=== PATIENT | female | born 1955 | race Hispanic/Latino ===

== ENCOUNTER → 2022-09-28 | Outpatient (CLI) | payer OTHER | END | disposition home or self-care (01) | LOC: SHCH 08:25 | PROVIDERS: ATTEND Internal Medicine Cardiovascular Disease | DX: I51.7 Cardiomegaly (principal); R06.02 Shortness of breath | CPT/HCPCS: 93306 ==

== ENCOUNTER → 2022-09-30 | Outpatient (CLI) | payer OTHER | END | disposition home or self-care (01) | LOC: EDUNIT# 08:00 → SHCH 08:04 | PROVIDERS: ATTEND Internal Medicine Cardiovascular Disease | DX: I87.2 Venous insufficiency (chronic) (peripheral) (principal) | CPT/HCPCS: 93970 ==

== ENCOUNTER → 2023-11-23 | Outpatient (CLI) | payer OTHER | END | disposition home or self-care (01) | LOC: RAH 09:18 | PROVIDERS: ATTEND Internal Medicine | DX: Z12.31 Encounter for screening mammogram for malignant neoplasm of breast (principal) | CPT/HCPCS: 77067 ==

== ENCOUNTER → 2024-01-10 | Outpatient (CLI) | payer OTHER | END | disposition home or self-care (01) | LOC: RAH 09:30 | PROVIDERS: ATTEND Internal Medicine | DX: Z13.820 Encounter for screening for osteoporosis (principal); M81.0 Age-related osteoporosis without current pathological fracture; Z78.0 Asymptomatic menopausal state | CPT/HCPCS: 77080 ==

== ENCOUNTER → 2024-01-23 | Outpatient (CLI) | payer OTHER ==
[~2024-01-23] MED LIST: GADOTERATE MEGLUMINE 10 MMOL/20 ML VIAL IV ONE
== END | disposition home or self-care (01) ==
LOC: RAH 07:50
PROVIDERS: ATTEND Internal Medicine Gastroenterology
DX: N28.1 Cyst of kidney, acquired (principal); R94.5 Abnormal results of liver function studies
CPT/HCPCS: 74183; A9575

== ENCOUNTER 2024-07-23 11:37 | Inpatient (IN) | payer OTHER ==
[~2024-07-23] VITALS: Ht 152.4 cm; Wt 69.9 kg
--- NOTE | 2024-07-23 11:51 | ERN ---
General Chief Complaint: Dyspnea/Respdistress Stated Complaint: SOB, BLE PAIN Time Seen by MD: 11:41 History of Present Illness Initial Comments 68-year-old female presents to the ED for evaluation of shortness a breath onset 2 months ago. Patient was sent by PCP for further evaluation. Patient has been complaining of neck pain, bilateral lower extremity pain, but denies any other associated symptoms at this time. Patient states these symptoms began after taking the flu shot on June 02. Medical history of CLL, DVT. Allergies: Coded Allergies: No Known Allergies (Unverified Allergy, Unknown, 07/23/24) Home Meds Reported Medications Nilotinib HCl (Tasigna) 150 Mg Capsule, 1 CAP PO BID for 30 Days, #120 CAP 0 Refills 07/23/24 Alendronate Sodium (Alendronate Sodium) 70 Mg Tablet, 1 TAB PO QWEEK for 28 Days, #4 TAB 0 Refills in the morning, at least 30 minutes before the first food, beverage, or medication of the day 07/23/24 Mirabegron (Myrbetriq) 50 Mg Tab.er.24h, 1 TAB PO DAILY for 30 Days, #30 TAB 0 Refills 07/23/24 Valacyclovir HCl (Valacyclovir) 1,000 Mg Tablet, 1 TAB PO BID for 7 Days, #21 TAB 0 Refills 07/23/24 Atorvastatin Calcium (LIPITOR) 20 Mg Tab, 1 TAB PO HS for 30 Days, #30 TAB 0 Refills 07/23/24 Ferrous Sulfate (Ferrous Sulfate) 325 Mg (65 Mg Iron) Ectab, 1 TAB PO DAILY for 30 Days, #30 TAB 0 Refills 07/23/24 Ursodiol (Ursodiol) 500 Mg Tablet, 1 TAB PO BID for 30 Days, #60 TAB 0 Refills 07/23/24 Calcium/D3/Mag Ox/Procurement Professional/Isai/Zn (Caltrate+D3 Plus Mineral Minis) 300 Mg-20 Tablet, 1 TAB PO DAILY for 30 Days, #30 TAB 0 Refills 07/23/24 [Amlodip/Benazepril] No Conflict Check, 1 TAB 07/23/24 ROS Dictation Constitutional: Negative for fever,chills, and weight loss Eyes: Negative for injury, pain,redness, and discharge ENT: Negative for injury,pain or swelling Cardiovascular: Negative for chest pain, palpitations, and edema Respiratory: Positive for shortness a breath, negative for cough, and wheezing, Abdomen/GI: Negative for abdominal pain, nausea, vomiting, diarrhea, and constipation Back: Negative for injury and pain : Negative for injury, bleeding and discharge MS/Extremity: Positive for neck pain, lower extremity pain Negative for injury and deformity Skin: Negative for rash, and discoloration Neuro: Negative for headache, weakness, numbness, tingling, and seizure Psych: Negative for suicide ideation, homicidal ideation, and hallucinations Physical Exam Physical Exam Dictation General: awake, alert, NAD Head/Face: Normocephalic, atraumatic Eyes: PERRL, EOMI, vision at baseline ENT: oral cavity clear, TMs clear, no signs of infection Neck: Trachea midline, supple, no nuchal rigidity Cardiovascular: RRR, normal S1/S2, No MRGs, no JVD Respiratory: Course bilateral breath sounds, mild respiratory distress, No rales or wheezes Abdomen: Soft, non-tender, non-distended, normal bowel sounds, no guarding or rebound. Skin: Warm, dry, normal turgor, no rash MS/Extremity: Pulses equal, no cyanosis, neurovascular intact, FROM Neuro: COAx4, GCS 15, strength 5/5, CN 2-12 intact, normal cerebellar exam, normal gait, Psych: Normal behavior, mood, and affect normal Results Laboratory and Microbiology Lab and Micro Result Laboratory Tests Test 07/23/24 13:00 07/23/24 14:28 White Blood Count 5.2 K/uL (4.8-10.8) Red Blood Count 3.30 MIL/uL (4.00-5.50) L Hemoglobin 10.6 g/dL (12.0-16.0) L Hematocrit 32.5 % (36-48) L Mean Corpuscular Volume 98.5 fL (79-99) Mean Corpuscular Hemoglobin 32.1 pg (27.0-33.0) Mean Corpuscular Hemoglobin Concent 32.6 g/dL (32.0-36.0) Red Cell Distribution Width 15.4 % (11.0-15.5) Platelet Count 154 K/uL (130-400) Mean Platelet Volume 11.2 fL (7.5-10.5) H Immature Granulocyte % (Auto) 0.2 % (0-1) Neutrophils (%) (Auto) 59.4 % (40.0-77.0) Lymphocytes (%) (Auto) 24.3 % (21.0-51.0) Monocytes (%) (Auto) 9.6 % (3.0-13.0) Eosinophils (%) (Auto) 5.5 % (0.0-8.0) Basophils (%) (Auto) 1.0 % (0.0-5.0) Neutrophils # (Auto) 3.1 K/uL (1.8-7.7) Lymphocytes # (Auto) 1.3 K/uL (1.0-4.8) Monocytes # (Auto) 0.5 K/uL (0.1-1.0) Eosinophils # (Auto) 0.29 K/uL (0.00-0.70) Basophils # (Auto) 0.05 K/uL (0.00-0.20) Absolute Immature Granulocyte (auto 0.01 K/uL (0-1) Nucleated Red Blood Cells 0.0 % (0.0-0.19) Prothrombin Time 10.8 SEC (9.6-11.6) Prothromb Time International Ratio 0.96 (0.85-1.15) Activated Partial Thromboplast Time 27.1 SEC (26.3-35.5) Sodium Level 146 mmol/L (136-145) H Potassium Level 3.5 mmol/L (3.5-5.1) Chloride Level 112 mmol/L (101-111) H Carbon Dioxide Level 25 mmol/L (21-32) Blood Urea Nitrogen 17 mg/dL (7-18) Creatinine 1.1 mg/dL (0.5-1.0) H Glomerular Filtration Rate Calc 54 mL/min (>90) Random Glucose 105 mg/dL (70-105) Total Calcium 8.8 mg/dL (8.5-10.1) Magnesium Level 2.10 mg/dL (1.80-2.40) Total Creatine Kinase 96 U/L (21-232) Troponin I High Sensitivity 19 ng/L (4-50) B-Type Natriuretic Peptide 268 pg/mL (0-100) H Influenza Type A Antigen Negative For Type A Influenza Type B Antigen Negative For Type B SARS-CoV-2, RNA, NAAT NEGATIVE SARS CoV-2 Urine Color LIGHT-YELLOW (YELLOW) Urine Appearance CLEAR (CLEAR) Urine pH 7.5 (5.0-8.0) Urine Specific [place] 1.022 (1.001-1.031) Urine Protein 70 mg/dL (NEGATIVE) H Urine Glucose (UA) NEGATIVE mg/dL (NEGATIVE) Urine Ketones NEGATIVE mg/dL (NEGATIVE) Urine Occult Blood NEGATIVE (NEGATIVE) Urine Nitrate NEGATIVE (NEGATIVE) Urine Bilirubin NEGATIVE mg/dL (NEGATIVE) Urine Urobilinogen 0.2 mg/dL (0.2-1.0) Urine Leukocyte Esterase NEGATIVE Marvel/uL Urine RBC 2-5 /HPF (0-1) H Urine WBC 0-1 /HPF (0-1) Urine Squamous Epithelial Cells RARE /HPF (0-2) Urine Bacteria None /HPF (None Seen) Labs Reviewed?: Yes EKG/XRAY/US/CT/MRI EKG Comment EKG 07/23/2024 time 12:03 p.m. ventricular rate 103, atrial fibrillation. QRS D 84, QT 374. No STEMI X-RAY Comment REASON: sob ORDERING PHYSICIAN: HOLGER HUA MD PROCEDURE: CXR1VW - CHEST 1VW CHEST 1VW HISTORY: Shortness of breath COMPARISON: None FINDINGS: A frontal projection of the chest was obtained. There are bilateral pulmonary infiltrates suggestive of pulmonary vascular congestion with possible superimposed pneumonitis. The heart is borderline enlarged. Mild degenerative changes are seen. No evidence of aortic calcification is seen. IMPRESSION: 1. Bilateral pulmonary infiltrates are seen suggestive of pulmonary vascular congestion with possible superimposed pneumonitis. DICTATED BY: BHARGAVI DAY MD DATE: 07/23/[address] Scan Comment REASON: rule out pe ORDERING PHYSICIAN: HOLGER HUA MD PROCEDURE: CTA CHEST - CT ANGIO CHEST CT ANGIO CHEST HISTORY: Pulmonary embolism COMPARISON: None TECHNIQUE: CT angiography of the chest was performed. The study was performed using angiographic technique with maximum intensity projection reconstruction images. Patient was given 100 cc of Omnipaque through intravenous route. FINDINGS: No CT evidence of filling defect is seen to suggest pulmonary embolus. No CT evidence of aortic dissection is seen. No evidence of parenchymal disease is seen. Small bilateral pleural effusions are seen with right more than left. Coronary arterial calcifications are seen. The heart is enlarged. No evidence of adrenal mass is seen. Degenerative changes of the spine are noted. IMPRESSION: 1. No CT evidence of acute pulmonary embolus is seen. Small bilateral pleural effusions. CT was performed with one or more following dose reduction techniques: automated exposure control, adjustment of the mA and kv according to patient's size, or use of a iterative reconstruction technique. DICTATED BY: BHARGAVI DAY MD DATE: 07/23/24 142 MDM MDM: Differential diagnosis: Shortness a breath, pleural effusion, respiratory distress [facility], accepts patient for admission Previous outside records reviewed: Old ER visits. Need for hospitalization: Patient does meet criteria for hospitalization. Need for emergency major/minor surgery: No Patient's prior external medical records from other ER visits were reviewed by me as indicated. Prior testing and results from previous visits were reviewed. Prior tests were taken into account with medical decision making and resource utilization, independent historian/historians were used to obtain complete medical history. I independently interpreted the test that were performed, results were reviewed by me and considered findings on radiology if ordered. Medical management and examination interpretation discussions were had by me with other qualified healthcare professionals as indicated for the patient's care. ED Course Orders Procedure Category Date Status Time Cbc With Differential LAB 07/23/24 Complete 11:45 Prothrombin Time With LAB 07/23/24 Complete INR 11:45 B-Type Natriuretic LAB 07/23/24 Complete Peptide 11:45 Chest 1vw RAD 07/23/24 Resulted 11:45 12 Lead Ekg Tracing- EKG 07/23/24 Logged Technical 11:45 Magnesium LAB 07/23/24 Complete 11:45 Creatine Kinase, Total LAB 07/23/24 Complete 11:45 Troponin I High LAB 07/23/24 Complete Sensitivity 11:45 Urinalysis Profile LAB 07/23/24 Complete 11:45 Partial LAB 07/23/24 Complete Thromboplastin Time 11:45 Basic Metabolic Panel LAB 07/23/24 Complete 11:[address] 07/23/24 Resulted 11:45 Influenza Type A & B, LAB 07/23/24 Complete Rapid 12:18 Covid Rna Naat LAB 07/23/24 Complete 12:18 Iohexol (Omnipaque) PHA 07/23/24 Complete 13:39 Oxygen By Nc/Pulse Ox CPOE 07/23/24 Transmitted 16:05 Daily Fluid Intake CPOE 07/23/24 Transmitted Restriction 16:05 Famotidine 20mg Tab PHA 07/23/24 In Process (Pepcid 20mg Tab) 21:00 Diphenhydramine Hcl PHA 07/23/24 In Process (Benadryl Cap) 16:30 Acetaminophen 325 Tab PHA 07/23/24 In Process (Tylenol 325mg Tab 16:30 Acetaminophen 325 Tab PHA 07/23/24 In Process (Tylenol 325mg Tab 16:30 Ondansetron 4mg Inj PHA 07/23/24 In Process (Zofran 4mg Inj) 16:30 Lactulose 20 Gm/30 Ml PHA 07/23/24 In Process Udcup (Constulose 16:30 Nitroglycerin 0.4mg PHA 07/23/24 In Process Sl Tab (Nitrostat) 16:30 Guaifenesin-Dm PHA 07/23/24 In Process 200/20mg 10ml 16:30 Ipratropium 0.5 PHA 07/23/24 In Process Mg/2.5 Ml Inh 18:00 Pulse Ox(Continuous) RT 07/23/24 Transmitted 16:05 Procalcitonin LAB 07/23/24 Logged 16:05 Hydralazine 25mg Tab PHA 07/23/24 In Process ([id number] Tab 16:30 Guaifenesin Sug-Can PHA 07/23/24 In Process 100 Mg/5ml (Robituss 16:30 Docusate Sodium 100 PHA 07/23/24 In Process Mg Cap (Colace 100mg 16:30 Polyethylene Glycol PHA 07/23/24 In Process 3350 (Miralax 3350 1 16:30 Lidocaine Hcl 2% PHA 07/23/24 Logged Viscous (Lidocaine Hcl 16:30 Natural Tears 15ml PHA 07/23/24 In Process (Artificial Tears) 16:30 Benzocaine/Menth/Cetylpyrd PHA 07/23/24 In Process Cl (Cepacol S 16:30 Admit Orders ADM 07/23/24 Transmitted 16:05 Telemetry Monitoring CPOE 07/23/24 Transmitted 16:05 Activity: Br W/Brp CPOE 07/23/24 Transmitted With Assist 16:05 Heart Healthy Diet DIET 07/23/24 Transmitted Dinner Cardiac Panel LAB 07/23/24 Logged 16:05 Cardiac Panel LAB 07/24/24 Verified 00:05 Cardiac Panel LAB 07/24/24 Verified 08:05 B-Type Natriuretic LAB 07/23/24 Logged Peptide 16:05 Arterial Blood Gas RT 07/23/24 Transmitted 16:05 Initiate SANDEE 07/23/24 In Process Hyperglycemia Protoco 16:05 B-Type Natriuretic LAB 07/24/24 Verified Peptide 04:00 Cbc With Differential LAB 07/24/24 Verified 04:00 Comprehensive LAB 07/24/24 Verified Metabolic Panel 04:00 Magnesium LAB 07/24/24 Verified 04:00 Chest 1vw RAD 07/24/24 Verified 06:00 Echo 2-D Complete ECHO 07/23/24 Logged 16:05 Furosemide 40mg Vial PHA 07/23/24 In Process (Lasix 40mg Vial) 16:30 Current Medications Medications (Trade) Dose Ordered Sig/Stefani Route PRN Reason Start Time Stop Time Status Last Admin Dose Admin Acetaminophen (TYLenol 325MG TAB) 650 mg Q4H PRN PO MILD PAIN (1-3) 07/23/24 16:30 08/22/24 16:29 Acetaminophen (TYLenol 325MG TAB) 650 mg Q6H PRN PO TEMPERATURE GREATER THAN 101.5 07/23/24 16:30 08/22/24 16:29 Artificial Tears (Artificial Tears) 1 drop Q2H PRN OP DRY EYES 07/23/24 16:30 08/22/24 16:29 Benzocaine (Cepacol Sore Throat Lozenge) 1 each Q2H PRN MM SORE THROAT 07/23/24 16:30 08/22/24 16:29 Diphenhydramine HCl (BENAdryl CAP) 25 mg Q4H PRN PO MILD ITCHING/RASH 07/23/24 16:30 08/22/24 16:29 Docusate Sodium (COLace 100MG CAP) 100 mg BID PRN PO CONSTIPATION 07/23/24 16:30 08/22/24 16:29 Famotidine (Pepcid 20mg Tab) 20 mg BID PO 07/23/24 21:00 08/22/24 20:59 Furosemide (LASix 40MG VIAL) 40 mg Q12H IV 07/23/24 16:30 07/25/24 04:31 Guaifenesin (RobiTUSSin SUGAR-FREE 100 MG/ 5 ML UDCUP) 200 mg Q4H PRN PO COUGH 07/23/24 16:30 08/22/24 16:29 Guaifenesin/ Dextromethorphan (RobiTUSSin DM 200/20MG 10ML) 10 ml Q4H PRN PO COUGH 07/23/24 16:30 08/22/24 16:29 Hydralazine HCl ([id number] TAB) 25 mg Q6H PRN PO SBP>160 or DBP>90 07/23/24 16:30 08/22/24 16:29 Iohexol (Omnipaque) 35,000 mg STK-MED ONCE IV 07/23/24 13:39 07/23/24 13:40 DC Ipratropium Arthur (AtrovENT UD) 0.5 mg [id number] IH 07/23/24 18:00 08/22/24 17:59 Lactulose (Constulose 20gm/ 30ml Udcup) 20 gm BID PRN PO CONSTIPATION 07/23/24 16:30 08/22/24 16:29 Lidocaine HCl/Al Hydroxide/Mg Hydroxide/ Dicyclomine HCl 20ML OR AD MAALOX P... Q6H PRN PO HEARTBURN 07/23/24 16:30 08/22/24 16:29 UNV Nitroglycerin (Nitrostat) 0.4 mg PROTOCOL PRN SL CHEST PAIN 07/23/24 16:30 08/22/24 16:29 Ondansetron HCl (zoFRAN 4MG INJ) 4 mg Q6H PRN IV NAUSEA/VOMITING 07/23/24 16:30 08/22/24 16:29 Polyethylene Glycol (MIRalax 3350 17 GM POWD.PACK) 17 gm DAILY PRN PO CONSTIPATION 07/23/24 16:30 08/22/24 16:29 Vital Signs Date Time Temp Pulse Resp B/P (MAP) Pulse Ox O2 Delivery O2 Flow Rate FiO2 07/23/24 15:30 97.9 84 14 134/56 98 Room Air* 0 21 07/23/24 12:45 97.9 102 11 127/69 96 Room Air* 0 21 07/23/24 11:41 98.1 99 16 142/78 97 Room Air 0 DX & DISP Disposition: Inpatient Decision to Admit Date: Jul 23, 2024 Decision to Admit Time: 16:11 Departure Impression: Primary Impression: Bilateral pleural effusion Additional Impression: Respiratory distress Condition: Stable Referrals: LEIGH ESTEVEZ MD (PCP) I have reviewed, & agreed with my scribe's, documentation. (Entered by Koby Weinstein, acting as a scribe for Dr. Hua) I personally scribed for HOLGER HUA MD (SHANE) on 07/23/24 at 11:51. Electronically submitted by Koby Weinstein ([place]). I personally scribed for HOLGER HUA MD (SHANE) on 07/23/24 at 12:15. Electronically submitted by Koby Weinstein ([email or web address]). HOLGER HUA MD Jul 23, 2024 11:51
[2024-07-23 13:08] LABS: BASOPHILS # (AUTO) 0.05 K/uL (0.00-0.20); EOSINOPHILS # (AUTO) 0.29 K/uL (0.00-0.70); EOSINOPHILS % (AUTO) 5.5 % (0.0-8.0); HEMATOCRIT 32.5 % (36-48); IMMATURE GRANULOCYTE ABSOLUTE 0.01 K/uL (0-1); LYMPHOCYTES # (AUTO) 1.3 K/uL (1.0-4.8); LYMPHOCYTES % (AUTO) 24.3 % (21.0-51.0); MEAN CORPUSCULAR HEMOGLOBIN 32.1 pg (27.0-33.0); MEAN CORPUSCULAR HGB CONC 32.6 g/dL (32.0-36.0); MEAN CORPUSCULAR VOLUME 98.5 fL (79-99); MONOCYTES # (AUTO) 0.5 K/uL (0.1-1.0); MONOCYTES % (AUTO) 9.6 % (3.0-13.0); NEUTROPHILS # (AUTO) 3.1 K/uL (1.8-7.7); NEUTROPHILS % (AUTO) 59.4 % (40.0-77.0); PLATELET COUNT (AUTO) 154 K/uL (130-400); RED CELL DISTRIBUTION WIDTH 15.4 % (11.0-15.5); WHITE BLOOD COUNT (AUTO) 5.2 K/uL (4.8-10.8)
--- NOTE | 2024-07-23 13:08 | HMCIMG ---
CHEST 1VW HISTORY: Shortness of breath COMPARISON: None FINDINGS: A frontal projection of the chest was obtained. There are bilateral pulmonary infiltrates suggestive of pulmonary vascular congestion with possible superimposed pneumonitis. The heart is borderline enlarged. Mild degenerative changes are seen. No evidence of aortic calcification is seen. IMPRESSION: 1. Bilateral pulmonary infiltrates are seen suggestive of pulmonary vascular congestion with possible superimposed pneumonitis.
[2024-07-23 13:17] LABS: CREATININE 1.1 mg/dL (0.5-1.0); POTASSIUM 3.5 mmol/L (3.5-5.1)
[2024-07-23 13:18] LABS: INR 0.96 (0.85-1.15); PROTHROMBIN TIME 10.8 SEC (9.6-11.6)
[2024-07-23 13:19] LABS: PARTIAL THROMBOPLASTIN TIME 27.1 SEC (26.3-35.5)
[2024-07-23 13:22] LABS: MAGNESIUM 2.1 mg/dL (1.80-2.40)
[2024-07-23 13:28] LABS: SARS-CoV-2, RNA, NAAT NEGATIVE SARS CoV-2 (NEGATIVE)
[2024-07-23 13:37] LABS: B-TYPE NATRIURETIC PEPTIDE 268 pg/mL (0-100); INFLUENZA TYPE A Negative For Type A (NEGATIVE); INFLUENZA TYPE B Negative For Type B (NEGATIVE)
[2024-07-23] MEDS ORDERED: IOHEXOL 350 MG/ML 100ML INFUS..BTL IV ONE (13:39)
--- NOTE | 2024-07-23 14:34 | HMCIMG ---
CT ANGIO CHEST HISTORY: Pulmonary embolism COMPARISON: None TECHNIQUE: CT angiography of the chest was performed. The study was performed using angiographic technique with maximum intensity projection reconstruction images. Patient was given 100 cc of Omnipaque through intravenous route. FINDINGS: No CT evidence of filling defect is seen to suggest pulmonary embolus. No CT evidence of aortic dissection is seen. No evidence of parenchymal disease is seen. Small bilateral pleural effusions are seen with right more than left. Coronary arterial calcifications are seen. The heart is enlarged. No evidence of adrenal mass is seen. Degenerative changes of the spine are noted. IMPRESSION: 1. No CT evidence of acute pulmonary embolus is seen. Small bilateral pleural effusions. CT was performed with one or more following dose reduction techniques: automated exposure control, adjustment of the mA and kv according to patient's size, or use of a iterative reconstruction technique.
[2024-07-23 14:39] LABS: APPEARANCE,URINE CLEAR (CLEAR); BILIRUBIN,URINE NEGATIVE (NEGATIVE); COLOR,URINE LIGHT-YELLOW (YELLOW); GLUCOSE, URINE (UA) NEGATIVE (NEGATIVE); KETONES,URINE NEGATIVE (NEGATIVE); LEUKOCYTE ESTERASE ,URINE NEGATIVE Leu/uL (NEGATIVE); NITRATE,URINE NEGATIVE (NEGATIVE); OCCULT BLOOD,URINE NEGATIVE (NEGATIVE); PH,URINE 7.5 (5.0-8.0); PROTEIN,URINE 70 mg/dL (NEGATIVE); UROBILINOGEN,URINE 0.2 mg/dL (0.2-1.0)
[2024-07-23 14:40] LABS: ADD UA MICROSCOPIC YES
[2024-07-23 14:41] LABS: MUCUS,URINE RARE LPF (None Seen); SQUAMOUS EPITHELIAL CELL,UR RARE /HPF (0-2); WBC,URINE 0-1 /HPF (0-1)
[2024-07-23] MEDS ORDERED: BENAZEPRIL (15:54)
[2024-07-23] MEDS ORDERED: CA C-5 PO (15:54)
[2024-07-23] MEDS ORDERED: AMLODIPINE (15:54)
[2024-07-23] MEDS ORDERED: URSO500T10 PO (15:54)
[2024-07-23] MEDS ORDERED: ATOR10 PO (15:54)
[2024-07-23] MEDS ORDERED: MIRA50TA PO (15:54)
[2024-07-23] MEDS ORDERED: VALA100031 PO (15:54)
[2024-07-23] MEDS ORDERED: ALEN70TA80 PO (15:54)
[2024-07-23] MEDS ORDERED: FERS325 PO (15:54)
[2024-07-23] MEDS ORDERED: NILO150C PO (15:54)
[2024-07-23] MEDS ORDERED: polyETHYLene GLYCol 3350 17 GM POWD.PACK PO PRN (16:30)
[2024-07-23] MEDS ORDERED: doCUSate SODIUM 100 MG CAP PO PRN (16:30)
[2024-07-23] MEDS ORDERED: NITROGLYCERIN 0.4 MG SL TAB SL PRN (16:30)
[2024-07-23] MEDS ORDERED: ondanSETRON 4MG INJ IV PRN (16:30)
[2024-07-23] MEDS ORDERED: hydrALAZine 25MG TABLET PO PRN (16:30)
[2024-07-23] MEDS ORDERED: ARTIFICAL TEARS SOL 15 ML OP PRN (16:30)
[2024-07-23] MEDS ORDERED: LACTULOSE 20 GM/30 ML UDCUP PO PRN (16:30)
[2024-07-23] MEDS ORDERED: LIDOCAINE HCL 2% VISCOUS 30 ML, MAG/ALUM/SIMETH 30ML 30 ML, DICYCLOMINE HCL 20 MG PO PRN (16:30)
[2024-07-23] MEDS ORDERED: guaiFENesin SUGAR-FREE 100 MG/5 ML UDCUP PO PRN (16:30)
[2024-07-23] MEDS ORDERED: BENZOCAINE/MENTH/CETYLPYRD CL 1 EACH LOZENGE MM PRN (16:30)
[2024-07-23] MEDS ORDERED: acetaMINOPHEN 325 MG TAB PO PRN (16:30)
[2024-07-23] MEDS ORDERED: DiphenhydrAMINE HCL 25 MG CAPSULE PO PRN (16:30)
[2024-07-23 16:50] VITALS: PULSE 84; RESP 20; O2SAT 96
[2024-07-23 16:58] LABS: ABG BASE EXCESS -4.9 mmol/L (-2.0-3.0); ABG HCO3 17.8 mmol/L (21.0-28.0); ABG OXYGEN SATURATION 92.2 % (94.0-98.0); ABG PCO2 27 mmHg (32-45); ABG PH 7.431 (7.350-7.450); VENT MODE, BG RA (ROOM AIR)
[2024-07-23] MEDS: furoSEMIDE 40MG VIAL IV SCH (17:09)
[2024-07-23 19:58] VITALS: PULSE 101; RESP 20
[2024-07-23] MEDS: IpraTROPium 0.5 MG/2.5 ML INH IH SCH (19:58)
[2024-07-23] MEDS: FAMOTIDINE 20MG TAB PO SCH (20:54)
[2024-07-23 23:27] VITALS: PULSE 80; RESP 18; O2SAT 97
--- NOTE | 2024-07-24 01:46 | HMCIMG ---
CHEST 1VW HISTORY: Congestion COMPARISON: None FINDINGS: A frontal projection of the chest was obtained. Mild bilateral pulmonary infiltrates are seen may be related to mild pulmonary vascular congestion with possible superimposed pneumonitis. The heart is borderline enlarged. Degenerative changes are seen. No evidence of aortic calcification is seen. IMPRESSION: 1. Mild bilateral pulmonary infiltrates are seen may be related to mild pulmonary vascular congestion with possible superimposed pneumonitis.
[2024-07-24 04:21] LABS: BASOPHILS # (AUTO) 0.05 K/uL (0.00-0.20); BASOPHILS % (AUTO) 0.9 % (0.0-5.0); EOSINOPHILS # (AUTO) 0.38 K/uL (0.00-0.70); EOSINOPHILS % (AUTO) 6.6 % (0.0-8.0); HEMATOCRIT 31.1 % (36-48); IMMATURE GRANULOCYTE ABSOLUTE 0.01 K/uL (0-1); LYMPHOCYTES # (AUTO) 1.4 K/uL (1.0-4.8); MEAN CORPUSCULAR HGB CONC 31.5 g/dL (32.0-36.0); MEAN CORPUSCULAR VOLUME 98.4 fL (79-99); MONOCYTES # (AUTO) 0.5 K/uL (0.1-1.0); MONOCYTES % (AUTO) 9.3 % (3.0-13.0); NEUTROPHILS # (AUTO) 3.4 K/uL (1.8-7.7); PLATELET COUNT (AUTO) 150 K/uL (130-400); RED BLOOD CELL COUNT(AUTO) 3.16 MIL/uL (4.00-5.50); RED CELL DISTRIBUTION WIDTH 15.4 % (11.0-15.5); WHITE BLOOD COUNT (AUTO) 5.8 K/uL (4.8-10.8)
[2024-07-24 04:34] LABS: ALBUMIN 2.7 g/dL (3.5-5.0); BILIRUBIN,TOTAL 2.7 mg/dL (0.2-1.0); CREATININE 1.1 mg/dL (0.5-1.0); POTASSIUM 3.6 mmol/L (3.5-5.1); TOTAL PROTEIN, SERUM 6.2 g/dL (6.0-8.3)
[2024-07-24 04:39] LABS: B-TYPE NATRIURETIC PEPTIDE 297 pg/mL (0-100)
--- NOTE | 2024-07-24 06:33 | EKG ---
[facility] Test Date: 2024-07-23 Test Time: 12:03:25 Pat Name: CARMEN HOLCOMB Department: EDHIP Room: ED 03 Gender: F Liability Claims Adjuster: [id number] : 1955 Requested By: HOLGER HUA Order Number: [id number] Reading MD: Олег Membreno Measurements Intervals [place] Rate: 103 P: 0 [place]: 0 QRS: 11 QRSD: 84 T: 70 QT: 374 QTc: 490 Interpretive Statements Atrial fibrillation No previous ECG available for comparison Electronically Signed On 07-24-2024 20:50:07 FINANCIAL SERVICES PROFESSIONAL by Олег Membreno Please click the below link to view image of tracing.
[2024-07-24 07:15] VITALS: PULSE 81; RESP 18
[2024-07-24 07:31] VITALS: PULSE 82; RESP 18; O2SAT 97
--- NOTE | 2024-07-24 10:41 | HP ---
[facility] HISTORY & PHYSICAL Date Patient Seen: Jul 24, 2024 Time of Visit: 10:31 Supervising Physician: Dr Tubbs Primary Care Physician: Dr Cyr Outpatient Specialists: [ ] Inpatient Consults: [ ] PROBLEM LIST: Acute hypoxemic respiratory failure Small Bilteral pleural effusions Essential hypertension Hyperlipidemia Osteoporosis History of CLL Plan Summary: Supplemental oxygen as needed Lasix 40 mg IV every 12 hours x4 doses Strict intakes and outputs Daily weights Obtain 2D echo Dispo: Home HPI: Mrs. Didi Holcomb is a 68-year-old female with a past medical history of hypertension, hyperlipidemia, CLL, osteoporosis presents to emergency room chief complaint of shortness of breath with an onset about 2-3 weeks. Patient reports she went to go see her PCP Dr. Cyr and was instructed to come to the ED for further evaluation. Patient has been complaining of neck pain, bilateral lower extremity pain, but denies any other associated symptoms at this time. Patient states these symptoms began after taking the flu shot on June 02. Patient denies fevers, chills, chest pain, nausea, vomiting. Admission vital signs are temperature 98.1 C, heart rate 87 beats per minute, respiratory rate 17 breaths per minute, blood pressure 149/63, O2 sat 92 %. Patient is placed on nasal cannula and O2 sat increase to 90%. Patient was given IV Lasix in the ED in patient reports her respiratory status has improved. Patient is currently on room air with an O2 sat of 95%. Patient had a chest x- ray which showed mild bilateral pulmonary infiltrates which may be related to mild pulmonary vascular congestion with possible superimposed pneumonitis. The patient was found to have an elevated D-dimer therefore a CT angio was performed and results show no CT evidence for PE. Small bilateral pleural effusions. Patient will be admitted for acute hypoxemic respiratory failure secondary to bilateral pulmonary effusions. PAST MEDICAL HX: see above PAST SURGICAL HX: noncontributory SOCIAL HISTORY: No tobacco, ETOH, or illicit drug use Coded Allergies: No Known Allergies (Unverified Allergy, Unknown, 07/23/24) REVIEW OF SYSTEMS: 12 point ROS reviewed with patient. Pertinent positives mentioned above. Otherwise negative. PHYSICAL EXAM: GENERAL: alert, weak, awake oriented x 3 HEENT: EOMI, Sclera non icteric, moist mucosa NECK: Supple, no JVD, trachea midline LUNGS: Clear breath sounds bilaterally. No wheezes HEART: Regular rate and rhythm. Normal S1 and S2, without murmurs ABD: Abdomen soft, nontender. Bowel sounds present EXT: No clubbing cyanosis or edema NEURO: Alert and oriented to person, follows commands Vital Signs (last 8hr) Date Time Temp Pulse Resp B/P (MAP) Pulse Ox O2 Delivery O2 Flow Rate FiO2 07/24/24 07:54 98.1 72 18 136/77 95 Room Air* 0 21 07/24/24 07:31 82 18 N/A Room Air 07/24/24 07:15 81 18 07/24/24 06:25 72 17 136/65 96 Room Air* 0 07/24/24 03:55 74 18 152/73 92 Room Air* 0 21 LABS: Hematology Labs: Test 07/24/24 04:14 Range/Units White Blood Count 5.8 4.8-10.8 K/uL Red Blood Count 3.16 L 4.00-5.50 MIL/uL Hemoglobin 9.8 L 12.0-16.0 g/dL Hematocrit 31.1 L 36-48 % Mean Corpuscular Volume 98.4 79-99 fL Mean Corpuscular Hemoglobin 31.0 27.0-33.0 pg Mean Corpuscular Hemoglobin Concent 31.5 L 32.0-36.0 g/dL Red Cell Distribution Width 15.4 11.0-15.5 % Platelet Count 150 130-400 K/uL Mean Platelet Volume 10.4 7.5-10.5 fL Immature Granulocyte % (Auto) 0.2 0-1 % Neutrophils (%) (Auto) 59.0 40.0-77.0 % Lymphocytes (%) (Auto) 24.0 21.0-51.0 % Monocytes (%) (Auto) 9.3 3.0-13.0 % Eosinophils (%) (Auto) 6.6 0.0-8.0 % Basophils (%) (Auto) 0.9 0.0-5.0 % Neutrophils # (Auto) 3.4 1.8-7.7 K/uL Lymphocytes # (Auto) 1.4 1.0-4.8 K/uL Monocytes # (Auto) 0.5 0.1-1.0 K/uL Eosinophils # (Auto) 0.38 0.00-0.70 K/uL Basophils # (Auto) 0.05 0.00-0.20 K/uL Absolute Immature Granulocyte (auto 0.01 0-1 K/uL Nucleated Red Blood Cells 0.0 0.0-0.19 % Chemistry Labs: Test 07/24/24 08:14 07/24/24 04:14 07/23/24 16:17 Range/Units Total Creatine Kinase 71 # 21-232 U/L Troponin I High Sensitivity 22.2 4-50 ng/L Sodium Level 144 136-145 mmol/L Potassium Level 3.6 3.5-5.1 mmol/L Chloride Level 112 H 101-111 mmol/L Carbon Dioxide Level 25 21-32 mmol/L Blood Urea Nitrogen 17 7-18 mg/dL Creatinine 1.1 H 0.5-1.0 mg/dL Glomerular Filtration Rate Calc 54 >90 mL/min Random Glucose 83 70-105 mg/dL Total Calcium 8.6 8.5-10.1 mg/dL Magnesium Level 2.00 1.80-2.40 mg/dL Total Bilirubin 2.7 H 0.2-1.0 mg/dL Aspartate Amino Transf (AST/SGOT) 22 10-37 U/L Alanine Aminotransferase (ALT/SGPT) 21 12-78 U/L Alkaline Phosphatase 118 50-136 U/L B-Type Natriuretic Peptide 297 H 0-100 pg/mL Total Protein 6.2 6.0-8.3 g/dL Albumin 2.7 L 3.5-5.0 g/dL Procalcitonin < 0.05 L 0.05-0.5 ng/mL Coagulation Labs: Test 07/23/24 13:00 Range/Units Prothrombin Time 10.8 9.6-11.6 SEC Prothromb Time International Ratio 0.96 0.85-1.15 Activated Partial Thromboplast Time 27.1 26.3-35.5 SEC DIAGNOSTICS / RADIOLOGY RESULTS: PATIENT: DIDI HOLCOMB MR#: [id number] : 1955 SEX: F AGE: 68 LOCATION: [facility] ORDER 2300 STATUS: ADM IN REPORT#: [id number] SERVICE 0600 REASON: CONGESTION ORDERING PHYSICIAN: WISE,DANILO M PA PROCEDURE: CXR1VW - CHEST 1VW CHEST 1VW HISTORY: Congestion COMPARISON: None FINDINGS: A frontal projection of the chest was obtained. Mild bilateral pulmonary infiltrates are seen may be related to mild pulmonary vascular congestion with possible superimposed pneumonitis. The heart is borderline enlarged. Degenerative changes are seen. No evidence of aortic calcification is seen. IMPRESSION: 1. Mild bilateral pulmonary infiltrates are seen may be related to mild pulmonary vascular congestion with possible superimposed pneumonitis. DICTATED BY: BHARGAVI DAY MD DATE: 07/24/24 0139 ELECTRONICALLY SIGNED BY: BHARGAVI DAY MD DATE: 07/24/24 0146 REASON: rule out pe ORDERING PHYSICIAN: HOLGER HUA MD PROCEDURE: CTA CHEST - CT ANGIO CHEST CT ANGIO CHEST HISTORY: Pulmonary embolism COMPARISON: None TECHNIQUE: CT angiography of the chest was performed. The study was performed using angiographic technique with maximum intensity projection reconstruction images. Patient was given 100 cc of Omnipaque through intravenous route. FINDINGS: No CT evidence of filling defect is seen to suggest pulmonary embolus. No CT evidence of aortic dissection is seen. No evidence of parenchymal disease is seen. Small bilateral pleural effusions are seen with right more than left. Coronary arterial calcifications are seen. The heart is enlarged. No evidence of adrenal mass is seen. Degenerative changes of the spine are noted. IMPRESSION: 1. No CT evidence of acute pulmonary embolus is seen. Small bilateral pleural effusions. CT was performed with one or more following dose reduction techniques: automated exposure control, adjustment of the mA and kv according to patient's size, or use of a iterative reconstruction technique. DICTATED BY: BHARGAVI DAY MD DATE: 07/23/24 1428 ELECTRONICALLY SIGNED BY: BHARGAVI DAY MD DATE: 07/23/24 1434 PLAN NEURO: Minimize central acting medications as possible. Maintain fall precautions, adequate lighting during the day PULMONARY: Supplemental 02 as needed. Maintain aspiration precautions at all times To nebs as needed Lasix 40 mg IV every 12 hours 6 minute walk test prior to discharge for home O2 eval CARDIOVASCULAR: Follow hemodynamics. Vital signs per facility protocol Obtain 2D echo GI & NUTRITION: Continue with nutritional support. Continue stool softeners and laxatives as needed. KIDNEYS & ELECTROLYTES: Strict monitoring of intake, output and overall fluid balance. Avoid nephrotoxic medications to the extent possible. Medications to be dosed according to renal function. Monitor electrolytes and replace as needed ENDOCRINE: Maintain blood glucose between 100-180 at all times. Hypoglycemia protocol in place INFECTIOUS DISEASE: Trend temperature, WBC and procalcitonin level Follow cultures, deescalate antibiotics as soon as possible. Panculture if new onset fever ONCOLOGY/HEMATOLOGY/COAGULATION: Monitor for s/s of bleeding Monitor hemoglobin, coagulation studies as needed SKIN: Pressure ulcer prevention per facility protocol Specialty mattress ORTHO/REHAB: Continue PT/OT Prophylaxis: Continue GI and DVT prophylaxis Code Status: Full Resuscitation Disposition: Home once medically stable for discharge. Other: Total patient care time exceeds 35 minutes excluding all procedures. ATTESTATION BY PHYSICIAN I reviewed the documentation, medical decision making, and treatment plan as noted by the mid-level provider above. I agree with the findings and plan of care. Tonny Tubbs MD, ECTOR N NP Jul 24, 2024 10:41
[2024-07-24 12:06] VITALS: PULSE 80; RESP 18
[2024-07-24] MEDS: acetaMINOPHEN 325 MG TAB PO PRN (15:51)
[2024-07-24 19:05] VITALS: PULSE 80; RESP 18
[2024-07-24 19:07] VITALS: PULSE 80; RESP 18; O2SAT 98
--- NOTE | 2024-07-24 20:30 | HMCSR ---
APPROVED REPORT EXAM: Two-dimensional and M-mode echocardiogram with Doppler and color Doppler. INDICATION ICD: Congestive heart failure 2D Dimensions RVDd4.2 cmLVEF(%)69.0 (>50%)LVED Vol(simp.)129.0 mL IVSd1.3 (0.7-1.1cm)FS(%)39 %LVES Vol(simp.)46.9 mL LVDd4.9 (3.8-5.6cm)LA (2D)4.2 (1.6-4.0cm)LVEF(%, simp.)64 % PWd1.3 (0.7-1.1cm)Ao Root(2D)2.8 (2.0-3.7cm)LA ESV INDEX (4CH)40.30 mL/m2 IVSs1.3 cmLVOT diam2.2 (1.8-2.4cm)LA ESV INDEX (2CH)41.50 mL/m2 LVDs3.0 (2.5-4.0cm)IVC diam1.8 cm PWs1.9 cm M-Mode Dimensions EPSS1.0 cm LA (MM)3.7 (1.6-4.0cm) Ao Root(MM)3.3 (2.0-3.7cm) Aortic Valve AoV VTI0.4 mAo Mean GR7.0 mmHgLVOT VTI0.23 m CHARLIE (VMAX)2.1 cm2AVA (VTI) 2.1 cm2 Mitral Valve MV E Vmax85.4 cm/sDECEL Pakv230 ms MV A Vmax97.2 cm/sP 1/2 T63 ms E/A ratio0.9MVA (PHT)3.5 cm2 MR Max PG87 mmHg TDI E/E' Ihtrcd03.9E/E' Uuwlpya07.5 Medial E' Peak V4.30 cm/sLateral E' Peak V5.50 cm/s Pulmonary Valve PV VTI0.23 mPV Mean GR3 mmHg Tricuspid Valve TR Vmax3.1 m/s TR Peak GR38.0 mmHg Left Ventricle The left ventricle is normal size. There is normal LV segmental wall motion. There is normal left susanne tricular wall thickness. LVEF is 60-65%. Stage I diastolic dysfunction. Right Ventricle The right ventricle is mildly dilated. The right ventricular systolic function is normal. Atria The left atrium is mildly dilated. The right atrium is moderately dilated. Aortic Valve The aortic valve is normal in structure. No aortic regurgitation is present. There is no aortic valvu lar stenosis. Mitral Valve The mitral valve is mildly thickened. Mitral valve leaflets open well.Chordae tendineae appears mildy thickened. There is trace of mitral valve regurgitation noted. There is no mitral valve stenosis. Tricuspid Valve The tricuspid valve is normal in structure. There is mild tricuspid valve regurgitation noted. Pulmonic Valve The pulmonary valve is normal in structure. There is no pulmonic valvular regurgitation. Great Vessels The aortic root is normal in size. The IVC is normal in size and collapses <50% with inspiration. Pericardium There is trivial pericardial effusion. Other Information Quality : Adequate Conclusion LVEF is 60-65%. Stage I diastolic dysfunction. The left atrium is mildly dilated. The mitral valve is mildly thickened. Mitral valve leaflets open well.Chordae tendineae appears mildy thickened. There is trace of mitral valve regurgitation noted. There is trivial pericardial effusion.
[2024-07-24] MEDS: URSODIOL PO SCH (20:59)
[2024-07-24] MEDS: NILOTINIB HCL PO SCH (20:59)
[2024-07-24] MEDS: atorVAStatin 10 MG TABLET PO SCH (21:00)
[2024-07-24 23:33] VITALS: PULSE 79; RESP 18
[2024-07-25] VITALS (15 sets, daily range): BP systolic 122–145; BP diastolic 63–87; PULSE 55–117; RESP 16–19; TEMP 97.6–98.4; O2SAT 95–98
[2024-07-25] MEDS: guaiFENesin-DM 200/20MG 10ML PO PRN (04:16)
[2024-07-25] MEDS: metoPROLOL tartRATE 25 MG TAB PO SCH (04:17)
[2024-07-25 05:25] LABS: HEMATOCRIT 33.9 % (36-48); MEAN CORPUSCULAR HEMOGLOBIN 30.8 pg (27.0-33.0); MEAN CORPUSCULAR HGB CONC 31.6 g/dL (32.0-36.0); MEAN CORPUSCULAR VOLUME 97.7 fL (79-99); RED BLOOD CELL COUNT(AUTO) 3.47 MIL/uL (4.00-5.50); RED CELL DISTRIBUTION WIDTH 15.3 % (11.0-15.5); WHITE BLOOD COUNT (AUTO) 6.3 K/uL (4.8-10.8)
[2024-07-25 05:40] LABS: CREATININE 1.2 mg/dL (0.5-1.0); POTASSIUM 3.6 mmol/L (3.5-5.1)
--- NOTE | 2024-07-25 08:23 | EKG ---
[facility] Test Date: 2024-07-25 Test Time: 03:49:13 Pat Name: CARMEN HOLCOMB Department: [facility] Room: 329 1 Gender: F Intermediate Card Tender: [id number] : 1955 Requested By: FLYNN GUERRIER Order Number: [id number] Reading MD: King Marrero Measurements Intervals [place] Rate: 124 P: 0 VA: 0 QRS: 11 QRSD: 84 T: 87 QT: 346 QTc: 497 Interpretive Statements Atrial fibrillation with rapid ventricular response with premature ventricular or aberrantly conducted complexes Compared to ECG 07/23/2024 12:03:25 Ventricular premature complex(es) now present Electronically Signed On 07-25-2024 17:04:30 [employer]ORTS PSYCHOLOGIST by King Marrero Please click the below link to view image of tracing.
[2024-07-25] MEDS: COP PO SCH (09:00)
[2024-07-25] MEDS: MANG PO SCH (09:00)
[2024-07-25] MEDS: D3 PO SCH (09:00)
[2024-07-25] MEDS: CALCIUM PO SCH (09:00)
[2024-07-25] MEDS: MAG OX PO SCH (09:00)
[2024-07-25] MEDS: [UNRECOGNIZED DRUG - OTHER] PO SCH (09:00)
[2024-07-25] MEDS: (Mirabegron (Myrbetriq) 1 TAB) PO SCH (09:00)
--- NOTE | 2024-07-25 09:22 | HMCIMG ---
CHEST 1VW HISTORY: Pleural effusion COMPARISON: 07/24/2024 FINDINGS: A frontal projection of the chest was obtained. Prominent interstitial markings are seen with possible superimposed infiltrates. The heart is enlarged. Degenerative changes are seen. No evidence of aortic calcification is seen. IMPRESSION: 1. Prominent interstitial markings are seen with possible superimposed infiltrates.
[2024-07-25] MEDS: FAMOTIDINE 20MG TAB PO SCH (09:33)
[2024-07-25] MEDS: FERROUS SULFATE 325 MG TABLET.DR PO SCH (09:33)
[2024-07-25 10:35] LABS: BASOPHILS # (AUTO) 0.07 K/uL (0.00-0.20); BASOPHILS % (AUTO) 1.2 % (0.0-5.0); EOSINOPHILS % (AUTO) 6.6 % (0.0-8.0); HEMATOCRIT 32.7 % (36-48); IMMATURE GRANULOCYTE ABSOLUTE 0.01 K/uL (0-1); LYMPHOCYTES # (AUTO) 1.2 K/uL (1.0-4.8); LYMPHOCYTES % (AUTO) 20.5 % (21.0-51.0); MEAN CORPUSCULAR HEMOGLOBIN 31.3 pg (27.0-33.0); MEAN CORPUSCULAR HGB CONC 32.4 g/dL (32.0-36.0); MEAN CORPUSCULAR VOLUME 96.5 fL (79-99); MONOCYTES # (AUTO) 0.5 K/uL (0.1-1.0); MONOCYTES % (AUTO) 8.6 % (3.0-13.0); NEUTROPHILS # (AUTO) 3.8 K/uL (1.8-7.7); NEUTROPHILS % (AUTO) 62.9 % (40.0-77.0); PLATELET COUNT (AUTO) 159 K/uL (130-400); RED BLOOD CELL COUNT(AUTO) 3.39 MIL/uL (4.00-5.50); RED CELL DISTRIBUTION WIDTH 15.1 % (11.0-15.5)
[2024-07-25] MEDS: HEParin 5,000 UNIT VIAL IV PRN (11:40)
[2024-07-25] MEDS: HEParin 25,000 UNITS/250ML D5W 250 ML IV SCH (11:48)
--- NOTE | 2024-07-25 11:59 | CONS ---
[facility] CARDIOLOGY CONSULTATION REPORT Cardiology consultation note dictated for King Marrero MD Primary nursing home admissions director Alfredo Pacheco MD Date Patient Seen: Jul 25, 2024 Requesting Physician: ARMANI Mills Reason for Consultation: New onset atrial fibrillation History of Present Illness: This is a 68-year-old female with a past medical history of hypertension, dyslipidemia, 2D echo 09/2022 with an EF of 55-60% and stage I diastolic dysfunction, venous insufficiency, probable iliac vein compression, bilateral common femoral venograms with IVUS was scheduled on 01/12/2023 but patient canceled procedure, right leg DVT in 08/2021 and CLL who presented to the ED with complaints of dyspnea on exertion, a dry cough, and PND for 3 weeks. CTA of the chest was negative for pulmonary embolism but found small bilateral pleural effusions. EKG on admission demonstrated atrial fibrillation with a heart rate of 103 bpm. Repeat EKG this morning demonstrated atrial fibrillation with rapid ventricular response with a heart rate of 124 bpm. Cardiology has been consulted for recommendations. The patient has been started on Metoprolol tartrate 25mg b.i.d. and is currently rate controlled with heart rate in the 90s. She currently denies chest pain, chest pressure, palpitations, dizziness, shortness of breath, fever, cough, nausea, or vomiting. Past Medical History: As per HPI and summarized below Past Surgical History: Hysterectomy Cholecystectomy Tonsillectomy Heel spurs Family History: The patient's mother, sister, and brother had diabetes mellitus type 2 and hypertension. Social History: The patient lives with family. Habits: The patient denies alcohol, tobacco, or illicit drug use. Home Meds: Alendronate 70 mg weekly Atorvastatin 20 mg nightly Amlodipine-benazepril 5-10 mg daily Caltrate plus D3 plus minerals 1 tab daily Ferrous sulfate 325 mg daily Mirabegron 50 mg daily Nilotinib 150 mg b.i.d. Ursodiol 500 mg b.i.d. Current Meds: Current Medications Medications Dose Ordered Sig/Stefani Start Time Stop Time Status Last Admin Diphenhydramine HCl 25 mg Q4H PRN 07/23/24 16:30 08/22/24 16:29 Acetaminophen 650 mg Q6H PRN 07/23/24 16:30 08/22/24 16:29 Acetaminophen 650 mg Q4H PRN 07/23/24 16:30 08/22/24 16:29 07/24/24 15:51 Ondansetron HCl 4 mg Q6H PRN 07/23/24 16:30 08/22/24 16:29 Lactulose 20 gm BID PRN 07/23/24 16:30 08/22/24 16:29 Nitroglycerin 0.4 mg PROTOCOL PRN 07/23/24 16:30 08/22/24 16:29 Guaifenesin/ Dextromethorphan 10 ml Q4H PRN 07/23/24 16:30 08/22/24 16:29 07/25/24 04:16 Ipratropium [place] 0.5 mg [id number] 07/23/24 18:00 08/22/24 17:59 07/25/24 11:33 Hydralazine HCl 25 mg Q6H PRN 07/23/24 16:30 08/22/24 16:29 Guaifenesin 200 mg Q4H PRN 07/23/24 16:30 08/22/24 16:29 Docusate Sodium 100 mg BID PRN 07/23/24 16:30 08/22/24 16:29 Polyethylene Glycol 17 gm DAILY PRN 07/23/24 16:30 08/22/24 16:29 Lidocaine HCl/Al Hydroxide/Mg Hydroxide/ Dicyclomine HCl 20ML OR AD MAALOX P... Q6H PRN 07/23/24 16:30 08/22/24 16:29 Artificial Tears 1 drop Q2H PRN 07/23/24 16:30 08/22/24 16:29 Benzocaine 1 each Q2H PRN 07/23/24 16:30 08/22/24 16:29 Atorvastatin Calcium 10 mg HS 07/24/24 21:00 08/23/24 20:59 07/24/24 21:00 Alendronate Sodium 70 mg QWEEK@0630 07/31/24 06:30 08/30/24 06:29 Home Med (Calcium/D3/ Mag Ox/Paper Cleaner/ Isai... DAILY 07/25/24 09:00 08/24/24 08:59 Ferrous Sulfate 325 mg DAILY 07/25/24 09:00 08/24/24 08:59 07/25/24 09:33 Home Med (Mirabegron (Myrbetriq) 1 TAB) DAILY 07/25/24 09:00 08/24/24 08:59 Home Med (Nilotinib HCl (Tasig... BID 07/24/24 21:00 08/23/24 20:59 07/24/24 20:59 Home Med (Ursodiol 1 TAB) BID 07/24/24 21:00 08/23/24 20:59 07/24/24 20:59 Amlodipine/ Benazepril HCl 1 each DAILY 07/25/24 09:00 08/24/24 08:59 07/25/24 09:33 Famotidine 20 mg Q24H 07/25/24 09:00 08/22/24 20:59 07/25/24 09:33 Metoprolol Tartrate 25 mg BID 07/25/24 03:30 08/24/24 03:29 07/25/24 09:33 Heparin Sodium (Porcine) *calculation based on ACTUAL B... AD PRN 07/25/24 11:00 08/24/24 10:59 Heparin Sodium/ Dextrose 250 ml @ 0 mls/hr Q6H 07/25/24 11:00 08/24/24 10:59 Review of Systems: CONST: No fever, fatigue, or weight changes. EYES: No recent vision problems. ENT: No congestion, ear pain, or sore throat. C/V: No chest pain, palpitations, or edema. RESP: No cough, congestion, wheezing or shortness of breath. GI: No abdominal pain, nausea, vomiting, constipation, or diarrhea. : No incontinence or dysuria. SKIN: No rash. NEURO: No headache, focal numbness or weakness, dizziness, or seizures. PSYCH: No depression or anxiety. HEME: No abnormal bruising or bleeding. LYMPH: No swollen glands. Physical Examination: GENERAL: No acute distress. HEAD: Normal with no signs of head trauma. EYES: PERRLA, EOMI, conjunctiva and sclera normal. ENT: Hearing grossly intact, normal oropharynx. NECK: Supple without JVD. There is no tenderness, lymphadenopathy, or masses. No thyromegaly. Normal carotid upstrokes without bruits. LUNGS: Clear breath sounds bilaterally. No wheezes, or rhonchi. HEART: Irregularly irregular rate and rhythm. VASC: Peripheral pulses +2 bilaterally. ABD: Bowel sounds normal, soft, nontender, no masses, no organomegaly. No audible bruits. : Not examined LYMPH: No lymphadenopathy noted. EXT: No clubbing, cyanosis or edema. SKIN: No rashes or lesions noted. NEURO: Awake, alert, and oriented x3. No focal sensory or strength deficits noted. Vital Signs (last 8hr) Date Time Temp Pulse Resp B/P (MAP) Pulse Ox O2 Delivery O2 Flow Rate FiO2 07/25/24 11:35 86 18 N/A Room Air 21 07/25/24 11:24 97.5 78 16 129/73 95 Room Air 21 07/25/24 08:32 97.9 66 16 132/63 94 Room Air 07/25/24 06:54 82 18 N/A Room Air 07/25/24 06:53 82 18 07/25/24 04:00 97.9 117 18 135/87 92 Room Air Laboratory: Hematology Labs: Test 07/25/24 10:20 Range/Units White Blood Count 6.0 4.8-10.8 K/uL Red Blood Count 3.39 L 4.00-5.50 MIL/uL Hemoglobin 10.6 L 12.0-16.0 g/dL Hematocrit 32.7 L 36-48 % Mean Corpuscular Volume 96.5 79-99 fL Mean Corpuscular Hemoglobin 31.3 27.0-33.0 pg Mean Corpuscular Hemoglobin Concent 32.4 32.0-36.0 g/dL Red Cell Distribution Width 15.1 11.0-15.5 % Platelet Count 159 130-400 K/uL Mean Platelet Volume 10.5 7.5-10.5 fL Immature Granulocyte % (Auto) 0.2 0-1 % Neutrophils (%) (Auto) 62.9 40.0-77.0 % Lymphocytes (%) (Auto) 20.5 L 21.0-51.0 % Monocytes (%) (Auto) 8.6 3.0-13.0 % Eosinophils (%) (Auto) 6.6 0.0-8.0 % Basophils (%) (Auto) 1.2 0.0-5.0 % Neutrophils # (Auto) 3.8 1.8-7.7 K/uL Lymphocytes # (Auto) 1.2 1.0-4.8 K/uL Monocytes # (Auto) 0.5 0.1-1.0 K/uL Eosinophils # (Auto) 0.40 0.00-0.70 K/uL Basophils # (Auto) 0.07 0.00-0.20 K/uL Absolute Immature Granulocyte (auto 0.01 0-1 K/uL Nucleated Red Blood Cells 0.0 0.0-0.19 % Chemistry Labs: Test 07/25/24 05:18 07/24/24 08:14 07/24/24 04:14 07/23/24 16:17 Range/Units Sodium Level 146 H 136-145 mmol/L Potassium Level 3.6 3.5-5.1 mmol/L Chloride Level 111 101-111 mmol/L Carbon Dioxide Level 27 21-32 mmol/L Blood Urea Nitrogen 21 H 7-18 mg/dL Creatinine 1.2 H 0.5-1.0 mg/dL Glomerular Filtration Rate Calc 49 >90 mL/min Random Glucose 97 70-105 mg/dL Total Calcium 8.8 8.5-10.1 mg/dL Phosphorus Level 4.0 2.5-4.9 mg/dL Magnesium Level 2.00 1.80-2.40 mg/dL Troponin I High Sensitivity 21 4-50 ng/L Total Creatine Kinase 71 # 21-232 U/L Total Bilirubin 2.7 H 0.2-1.0 mg/dL Aspartate Amino Transf (AST/SGOT) 22 10-37 U/L Alanine Aminotransferase (ALT/SGPT) 21 12-78 U/L Alkaline Phosphatase 118 50-136 U/L B-Type Natriuretic Peptide 297 H 0-100 pg/mL Total Protein 6.2 6.0-8.3 g/dL Albumin 2.7 L 3.5-5.0 g/dL Procalcitonin < 0.05 L 0.05-0.5 ng/mL Coagulation Labs: Test 07/25/24 10:20 07/23/24 13:00 Range/Units Activated Partial Thromboplast Time 27.8 26.3-35.5 SEC Prothrombin Time 10.8 9.6-11.6 SEC Prothromb Time International Ratio 0.96 0.85-1.15 Diagnostics / Radiology: Echocardiogram on 07/24/2024 Conclusion LVEF is 60-65%. Stage I diastolic dysfunction. The left atrium is mildly dilated. The mitral valve is mildly thickened. Mitral valve leaflets open well.Chordae tendineae appears mildy thickened. There is trace of mitral valve regurgitation noted. There is trivial pericardial effusion. Impression and Plan: New onset atrial fibrillation Hypertension Dyslipidemia 2D echo 09/2022 with an EF of 55-60% and stage I diastolic dysfunction Venous insufficiency, probable iliac vein compression, Hx of right leg DVT in 08/2021 CLL New onset atrial fibrillation [id number] Score of at least 3 points 2D Echo on 07/24/2024 with an EF of 60-65%, stage I diastolic dysfunction, mildly dilated left atrium, and a trivial pericardial effusion -Started on a Heparin drip and plan to transition to Eliquis 5 mg b.i.d. prior to discharge -Continue metoprolol tartrate 25 mg b.i.d. ATTESTATION BY PHYSICIAN I have seen and examined the patient. I reviewed the documentation, medical decision making, and treatment plan as noted by the mid-level provider above. I agree with the findings and plan of care. KING MARRERO MD, [facility] Jul 25, 2024 11:59 KING MARRERO MD Jul 25, 2024 13:17
[2024-07-26] VITALS (13 sets, daily range): BP systolic 113–152; BP diastolic 52–82; PULSE 55–89; RESP 18–20; TEMP 97.8–98.6; O2SAT 94–97
--- NOTE | 2024-07-26 04:30 | NUR ---
CONVERTED TO SINUS RHYTHM PER TELEMETRY PT CONVERTED TO SINUS RHYTHM AT THIS TIME, VITAL SIGNS STABLE WILL CONT TO MONITOR
--- NOTE | 2024-07-26 07:23 | PN ---
[facility] Cardiology Progress Note CARDIOLOGY PROGRESS NOTE JULY 26, 2024 PROBLEMS: 1. New onset atrial fibrillation 2. Hypertension 3. Dyslipidemia 4. Chronic venous insufficiency 5. History of right leg DVT August 2021 6. Chronic lymphocytic leukemia The patient 2D echo showed an ejection fraction of 60-65% grade 1 diastolic left ventricular dysfunction and trivial pericardial effusion. Blood pressure is 130-150 systolic. Heart rate has been in the 70s and the patient is afebrile. Hemoglobin 10.6 platelet count [id number]. Potassium 3.6 BUN 21 creatinine 1.2. The patient continues on amlodipine benazepril atorvastatin famotidine heparin protocol metoprolol tartrate 25 mg b.i.d.. Plans today will be to discontinue heparin and switch over to Eliquis 5 mg p.o. b.i.d. which will be the appropriate dose for her age weight and renal function. Currently the patient denies any chest pain or shortness of breath. She is able to lie flat comfortably. We will discontinue heparin start her on apixaban 5 mg p.o. b.i.d.. My standpoint she can be discharged home and follow up me as an out patient. Discharge instructions have been given. ISSA LOUIE MD Jul 26, 2024 07:23
[2024-07-26] MEDS ORDERED: METO25 PO (08:00)
[2024-07-26] MEDS ORDERED: APIX5TAB PO (08:00)
[2024-07-26] MEDS: APIXaban 5 MG TABLET PO SCH (08:16)
--- NOTE | 2024-07-26 20:45 | NUR ---
MEDS SHIFT ASSESSMENT DONE, PLEASE REFER TO CHART. DUE MEDS ADMINISTERED, TOLERATED WELL. KEPT RESTED AND COMFORTABLE IN BED. CALL LIGHT WITHIN REACH.
--- NOTE | 2024-07-26 21:32 | PN ---
[facility] PROGRESS NOTE Date Patient Seen: Jul 26, 2024 Time of Visit: 16:28 Supervising Physician: BRIGHT KOO MD Primary Care Physician: Dr Cyr Outpatient Specialists: [ ] Inpatient Consults: [ ] PROBLEM LIST: New onset of Atrial Fibrillation Acute hypoxemic respiratory failure Small Bilteral pleural effusions Essential hypertension Hyperlipidemia Osteoporosis History of CLL INTERVAL HISTORY: Patient seen and examined at the bedside, she is awake, alert, admitted due to respiratory failure noted with pulmonary edema place on oxygen , initially started on heparin and now has been switch to eliquis due to new onset of Afib no chest pain or SOB at this time, possible discharge in the morning. REVIEW OF SYSTEMS: 12 point ROS reviewed with patient. Pertinent positives mentioned above. Otherwise negative. PHYSICAL EXAM: GENERAL: alert, weak, awake oriented x 3 HEENT: EOMI, Sclera non icteric, moist mucosa NECK: Supple, no JVD, trachea midline LUNGS: Clear breath sounds bilaterally. No wheezes HEART: Regular rate and rhythm. Normal S1 and S2, without murmurs ABD: Abdomen soft, nontender. Bowel sounds present EXT: No clubbing cyanosis or edema NEURO: Alert and oriented to person, follows commands Vital Signs (last 8hr) Date Time Temp Pulse Resp B/P (MAP) Pulse Ox O2 Delivery O2 Flow Rate FiO2 07/26/24 18:54 65 18 07/26/24 18:54 65 18 N/A Room Air 21 07/26/24 17:00 98.2 66 18 128/54 99 Room Air LABS: Hematology Labs: Test 07/25/24 10:20 Range/Units White Blood Count 6.0 4.8-10.8 K/uL Red Blood Count 3.39 L 4.00-5.50 MIL/uL Hemoglobin 10.6 L 12.0-16.0 g/dL Hematocrit 32.7 L 36-48 % Mean Corpuscular Volume 96.5 79-99 fL Mean Corpuscular Hemoglobin 31.3 27.0-33.0 pg Mean Corpuscular Hemoglobin Concent 32.4 32.0-36.0 g/dL Red Cell Distribution Width 15.1 11.0-15.5 % Platelet Count 159 130-400 K/uL Mean Platelet Volume 10.5 7.5-10.5 fL Immature Granulocyte % (Auto) 0.2 0-1 % Neutrophils (%) (Auto) 62.9 40.0-77.0 % Lymphocytes (%) (Auto) 20.5 L 21.0-51.0 % Monocytes (%) (Auto) 8.6 3.0-13.0 % Eosinophils (%) (Auto) 6.6 0.0-8.0 % Basophils (%) (Auto) 1.2 0.0-5.0 % Neutrophils # (Auto) 3.8 1.8-7.7 K/uL Lymphocytes # (Auto) 1.2 1.0-4.8 K/uL Monocytes # (Auto) 0.5 0.1-1.0 K/uL Eosinophils # (Auto) 0.40 0.00-0.70 K/uL Basophils # (Auto) 0.07 0.00-0.20 K/uL Absolute Immature Granulocyte (auto 0.01 0-1 K/uL Nucleated Red Blood Cells 0.0 0.0-0.19 % Chemistry Labs: Test 07/26/24 11:35 07/25/24 05:18 Range/Units Whole Blood Glucose 161 H 70-110 MG/DL Sodium Level 146 H 136-145 mmol/L Potassium Level 3.6 3.5-5.1 mmol/L Chloride Level 111 101-111 mmol/L Carbon Dioxide Level 27 21-32 mmol/L Blood Urea Nitrogen 21 H 7-18 mg/dL Creatinine 1.2 H 0.5-1.0 mg/dL Glomerular Filtration Rate Calc 49 >90 mL/min Random Glucose 97 70-105 mg/dL Total Calcium 8.8 8.5-10.1 mg/dL Phosphorus Level 4.0 2.5-4.9 mg/dL Magnesium Level 2.00 1.80-2.40 mg/dL Troponin I High Sensitivity 21 4-50 ng/L Coagulation Labs: Test 07/26/24 05:28 Range/Units Activated Partial Thromboplast Time 90.2 #*H 26.3-35.5 [facility] / RADIOLOGY RESULTS: [ ] PLAN Continue with anticoagulation therapy oxygen support as needed continue with current medical management NEURO: Minimize central acting medications as possible. Maintain fall precautions, adequate lighting during the day PULMONARY: Supplemental 02 as needed. Maintain aspiration precautions at all times To nebs as needed Lasix 40 mg IV every 12 hours 6 minute walk test prior to discharge for home O2 eval CARDIOVASCULAR: Follow hemodynamics. Vital signs per facility protocol Obtain 2D echo GI & NUTRITION: Continue with nutritional support. Continue stool softeners and laxatives as needed. KIDNEYS & ELECTROLYTES: Strict monitoring of intake, output and overall fluid balance. Avoid nephrotoxic medications to the extent possible. Medications to be dosed according to renal function. Monitor electrolytes and replace as needed ENDOCRINE: Maintain blood glucose between 100-180 at all times. Hypoglycemia protocol in place INFECTIOUS DISEASE: Trend temperature, WBC and procalcitonin level Follow cultures, deescalate antibiotics as soon as possible. Panculture if new onset fever ONCOLOGY/HEMATOLOGY/COAGULATION: Monitor for s/s of bleeding Monitor hemoglobin, coagulation studies as needed SKIN: Pressure ulcer prevention per facility protocol Specialty mattress ORTHO/REHAB: Continue PT/OT Prophylaxis: Continue GI and DVT prophylaxis Code Status: Full Resuscitation Disposition: Home once medically stable for discharge. ATTESTATION BY PHYSICIAN Documentation assistance provided by a scribe, information recorded by the scribe was done at my direction and has been reviewed and validated by me." BRIGHT KOO MD I personally scribed for HANANE NOVOA MD ([email or web address]) on 07/26/24 at 21:32. Electronically submitted by Kary Cobb ([id number]). HANANE NOVOA MD Jul 26, 2024 21:32
[2024-07-27] VITALS (8 sets, daily range): BP systolic 106–141; BP diastolic 42–74; PULSE 60–66; RESP 18–20; TEMP 98–98.5; O2SAT 95–97
--- NOTE | 2024-07-27 06:00 | NUR ---
ROUNDS PT RESTING WELL, NO DISTRESS NOTED. SLEPT AT INTERVALS DURING THE SHIFT. KEPT RESTED AND COMFORTABLE. FOR MORE CARE.
--- NOTE | 2024-07-27 09:00 | NUR ---
note morning metoprolol held due to decreased hr, hr 58bpm
--- NOTE | 2024-07-27 13:18 | DS ---
[facility] DISCHARGE SUMMARY Date Patient Seen: Jul 27, 2024 Time of Visit: 13:12 Supervising Physician: Dr Arce Primary Care Physician: Dr Cyr Outpatient Specialists: [ ] Inpatient Consults: [ ] PROBLEM LIST: New onset of Atrial Fibrillation Acute hypoxemic respiratory failure poa resolved Small Bilteral pleural effusions poa resolved Essential hypertension Hyperlipidemia Osteoporosis History of CLL HOSPITAL COURSE: HPI (per admitting provider) Mrs. Didi Colmenares is a 68-year-old female with a past medical history of hypertension, hyperlipidemia, CLL, osteoporosis presents to emergency room chief complaint of shortness of breath with an onset about 2-3 weeks. Patient reports she went to go see her PCP Dr. Cyr and was instructed to come to the ED for further evaluation. Patient has been complaining of neck pain, bilateral lower extremity pain, but denies any other associated symptoms at this time. Patient states these symptoms began after taking the flu shot on June 02. Patient denies fevers, chills, chest pain, nausea, vomiting. Admission vital signs are temperature 98.1 C, heart rate 87 beats per minute, respiratory rate 17 breaths per minute, blood pressure 149/63, O2 sat 92 %. Patient is placed on nasal cannula and O2 sat increase to 90%. Patient was given IV Lasix in the ED in patient reports her respiratory status has improved. Patient is currently on room air with an O2 sat of 95%. Patient had a chest x- ray which showed mild bilateral pulmonary infiltrates which may be related to mild pulmonary vascular congestion with possible superimposed pneumonitis. The patient was found to have an elevated D-dimer therefore a CT angio was performed and results show no CT evidence for PE. Small bilateral pleural effusions. Patient will be admitted for acute hypoxemic respiratory failure secondary to bilateral pulmonary effusions. Patient seen and examined at the bedside, she is awake, alert, admitted due to respiratory failure noted with pulmonary edema place on oxygen , initially started on heparin and now has been switch to eliquis due to new onset of Afib no chest pain or SOB at this time, possible discharge in the morning. Today patient is seen sitting up in the side of the bed accompanied by her with no acute distress. Patient has been on room air and denies dyspnea. Patient continues on Eliquis for atrial fibrillation with no signs of bleeding. Patient's has been educated on benefits and risks which include bleeding and she reports she understands and we will continue on Eliquis. Patient has been advised to follow up with PCP in the next 1-2 days. Patient has been advised to follow up with Cardiology within 1-2 weeks. Medication reconciliation has been completed new prescriptions have been sent to patient's pharmacy. Education regarding current diagnosis been provided to the patient. All questions have been answered. Patient to be discharged home. The patient was treated for the following problems: ACTIVE PROBLEM LIST FOR THE HOSPITALIZATION: New onset of Atrial Fibrillation Acute hypoxemic respiratory failure poa resolved Small Bilteral pleural effusions poa resolved Essential hypertension Hyperlipidemia Osteoporosis History of CLL CHRONIC PROBLEMS: continue previous management per PCP unless otherwise indicated MATHEMATICS LECTURER FINDINGS/RECOMMENDATIONS: [ ] PROCEDURES: as mentioned above DISCHARGE MEDICATIONS: See DC med list Pt hemodynamically stable and afebrile at time of discharge. PCP notified of patients admission, hospital course and discharge. New Medications: Apixaban (Eliquis) 5 Mg Tablet 5 MG PO BID, #60 TAB 3 Refills Metoprolol Tartrate (Lopressor) 25 Mg Tab 25 MG PO BID, #60 TAB 3 Refills Continued Medications: Alendronate Sodium (Alendronate Sodium) 70 Mg Tablet 1 TAB PO QWEEK for 28 Days, #4 TAB 0 Refills in the morning, at least 30 minutes before the first food, beverage, or medication of the day [Amlodip/Benazepril] () 1 TAB Atorvastatin Calcium (Lipitor) 20 Mg Tab 1 TAB PO HS for 30 Days, #30 TAB 0 Refills Calcium/D3/Mag Ox/Gear Repairer/Isai/Zn (Caltrate+D3 Plus Mineral Minis) 300 Mg-20 Tablet 1 TAB PO DAILY for 30 Days, #30 TAB 0 Refills Ferrous Sulfate (Ferrous Sulfate) 325 Mg (65 Mg Iron) Ectab 1 TAB PO DAILY for 30 Days, #30 TAB 0 Refills Mirabegron (Myrbetriq) 50 Mg Tab.er.24h 1 TAB PO DAILY for 30 Days, #30 TAB 0 Refills Nilotinib HCl (Tasigna) 150 Mg Capsule 1 CAP PO BID for 30 Days, #120 CAP 0 Refills Ursodiol (Ursodiol) 500 Mg Tablet 1 TAB PO BID for 30 Days, #60 TAB 0 Refills Valacyclovir HCl (Valacyclovir) 1,000 Mg Tablet 1 TAB PO BID for 7 Days, #21 TAB 0 Refills PHYSICAL EXAM: GENERAL: alert, weak, awake oriented x 3 HEENT: EOMI, Sclera non icteric, moist mucosa NECK: Supple, no JVD, trachea midline LUNGS: Clear breath sounds bilaterally. No wheezes HEART: Regular rate and rhythm. Normal S1 and S2, without murmurs ABD: Abdomen soft, nontender. Bowel sounds present EXT: No clubbing cyanosis or edema NEURO: Alert and oriented to person, follows commands FOLLOW-UP: Follow-up with PCP in 2-3 days Follow up with Cardiology in 1 - 2 week RECOMMENDATIONS: See Discharge Instructions This case was seen and discussed with my supervising physician. More than 30 minutes spent on discharge process, including evaluation of the patient, discussion with nursing staff, medication reconciliation and follow-up appointments ATTESTATION BY PHYSICIAN I have evaluated the patient chart, medical records, and spoke with appropriate staff. I reviewed the documentation, medical decision making, and treatment plan as noted by the mid-level provider above. I agree with the findings and plan of care. Avinash Arce MD,RAFY N DIESEL DRAGLINE OPERATOR Jul 27, 2024 13:18
[2024-07-31] MEDS ORDERED: ALENDRONATE SODIUM 35 MG TAB PO SCH (06:30)
== END 2024-07-27 15:00 | disposition home or self-care (01) | DRG 189 ==
LOC: EDH 11:37 → EDHIP 16:05 → OBSVTOIN 16:05 → 3AH 07-24 23:39
PROVIDERS: ADMIT Internal Medicine; ATTEND Internal Medicine
DX: J96.01 Acute respiratory failure with hypoxia (principal); J90 Pleural effusion, not elsewhere classified; J81.1 Chronic pulmonary edema; C91.10 Chronic lymphocytic leukemia of B-cell type not having achieved remission; I10 Essential (primary) hypertension; E78.5 Hyperlipidemia, unspecified; M81.0 Age-related osteoporosis without current pathological fracture; I87.2 Venous insufficiency (chronic) (peripheral); J98.4 Other disorders of lung; I48.91 Unspecified atrial fibrillation; Z79.01 Long term (current) use of anticoagulants; Z79.899 Other long term (current) drug therapy; Z82.49 Family history of ischemic heart disease and other diseases of the circulatory system; Z86.711 Personal history of pulmonary embolism; Z83.3 Family history of diabetes mellitus; Z86.718 Personal history of other venous thrombosis and embolism; Z90.710 Acquired absence of both cervix and uterus; Z79.83 Long term (current) use of bisphosphonates
CPT/HCPCS: 36415; 36600; 71045; 71275; 80048; 80053; 81001; 82550; 82803; 82948; 83735; 83880; 84100; 84145; 84484; 85025; 85027; 85610; 85730; 87635; 87804; 93005; 93306; 94640; 94664; 99285; G0378; J1644; J1940; Q9967

== ENCOUNTER → 2024-10-02 | Outpatient (CLI) | payer OTHER ==
[~2024-10-02] MED LIST changes: +ALEN70TA80 PO; +AMLODIPINE; +APIX5TAB PO; +ATOR10 PO; +BENAZEPRIL; +CA C-5 PO; +FERS325 PO; -GADOTERATE MEGLUMINE 10 MMOL/20 ML VIAL IV ONE; +METO25 PO; +MIRA50TA PO; +NILO150C PO; +URSO500T10 PO; +VALA100031 PO
[2024-10-02 12:11] LABS: BASOPHILS # (AUTO) 0.05 K/uL (0.00-0.20); BASOPHILS % (AUTO) 0.9 % (0.0-5.0); EOSINOPHILS # (AUTO) 0.31 K/uL (0.00-0.70); EOSINOPHILS % (AUTO) 5.4 % (0.0-8.0); HEMATOCRIT 28.3 % (36-48); IMMATURE GRANULOCYTE ABSOLUTE 0.01 K/uL (0-1); LYMPHOCYTES # (AUTO) 1.2 K/uL (1.0-4.8); LYMPHOCYTES % (AUTO) 21.3 % (21.0-51.0); MEAN CORPUSCULAR HEMOGLOBIN 35.1 pg (27.0-33.0); MEAN CORPUSCULAR HGB CONC 34.6 g/dL (32.0-36.0); MEAN CORPUSCULAR VOLUME 101.4 fL (79-99); MONOCYTES # (AUTO) 0.6 K/uL (0.1-1.0); MONOCYTES % (AUTO) 10.3 % (3.0-13.0); NEUTROPHILS # (AUTO) 3.6 K/uL (1.8-7.7); NEUTROPHILS % (AUTO) 61.9 % (40.0-77.0); PLATELET COUNT (AUTO) 147 K/uL (130-400); RED BLOOD CELL COUNT(AUTO) 2.79 MIL/uL (4.00-5.50); RED CELL DISTRIBUTION WIDTH 17.3 % (11.0-15.5); WHITE BLOOD COUNT (AUTO) 5.7 K/uL (4.8-10.8)
[2024-10-02 12:39] LABS: ALBUMIN 2.9 g/dL (3.5-5.0); BILIRUBIN,TOTAL 3.6 mg/dL (0.2-1.0); CARBON DIOXIDE 23 mmol/L (21-32); CHLORIDE 112 mmol/L (101-111); CREATININE 1.1 mg/dL (0.5-1.0); GLOMERULAR FILTR. RATE CALC 54 mL/min (>90); GLUCOSE,RANDOM 100 mg/dL (70-105); POTASSIUM 3.7 mmol/L (3.5-5.1); SODIUM SERUM 145 mmol/L (136-145); TOTAL PROTEIN, SERUM 6.5 g/dL (6.0-8.3); UREA NITROGEN, BLOOD 18 mg/dL (7-18)
[2024-10-02 12:59] LABS: ALANINE AMINOTRANSFERASE < 6 U/L (12-78); ASPARTATE AMINOTRANSFERASE 14 U/L (10-37)
== END | disposition home or self-care (01) ==
LOC: LAB 10:33
PROVIDERS: ATTEND Internal Medicine Cardiovascular Disease
DX: I48.0 Paroxysmal atrial fibrillation (principal)
CPT/HCPCS: 36415; 80053; 83880; 85025

== ENCOUNTER → 2024-10-16 | Day surgery (SDC) | payer OTHER ==
[2024-10-16] VITALS (8 sets, daily range): BP systolic 113–179; BP diastolic 52–109; PULSE 59–73; RESP 15–23; TEMP 97.5–97.9
[~2024-10-16] MED LIST changes: +AMLO1CAP87 PO; +CA/D1TAB7 PO; +FENTanyl CITRate PF 50 MCG/1 ML 2ML VIAL ONE; +FLUT1BLS3 IH; +FURO20TA4 PO; +ISOS30TA92 PO; +MIDAZOLAM HCL 1 MG/ML 2ML VIAL ONE; +SENN-316 PO
[2024-10-16] MEDS: 0.9%NACL 1000ML 1,000 ML IV SCH (09:09)
[2024-10-16 09:14] LABS: BASOPHILS # (AUTO) 0.06 K/uL (0.00-0.20); EOSINOPHILS # (AUTO) 0.28 K/uL (0.00-0.70); EOSINOPHILS % (AUTO) 4.8 % (0.0-8.0); HEMATOCRIT 35.7 % (36-48); IMMATURE GRANULOCYTE ABSOLUTE 0.02 K/uL (0-1); LYMPHOCYTES # (AUTO) 1.4 K/uL (1.0-4.8); LYMPHOCYTES % (AUTO) 24.7 % (21.0-51.0); MEAN CORPUSCULAR HEMOGLOBIN 33.3 pg (27.0-33.0); MEAN CORPUSCULAR HGB CONC 32.2 g/dL (32.0-36.0); MEAN CORPUSCULAR VOLUME 103.5 fL (79-99); MONOCYTES # (AUTO) 0.5 K/uL (0.1-1.0); MONOCYTES % (AUTO) 7.9 % (3.0-13.0); NEUTROPHILS # (AUTO) 3.6 K/uL (1.8-7.7); NEUTROPHILS % (AUTO) 61.3 % (40.0-77.0); PLATELET COUNT (AUTO) 142 K/uL (130-400); RED BLOOD CELL COUNT(AUTO) 3.45 MIL/uL (4.00-5.50); RED CELL DISTRIBUTION WIDTH 20.3 % (11.0-15.5); WHITE BLOOD COUNT (AUTO) 5.8 K/uL (4.8-10.8)
[2024-10-16 09:28] LABS: INR 1.09 (0.85-1.15); PROTHROMBIN TIME 11.5 SEC (9.6-11.6)
[2024-10-16 09:29] LABS: PARTIAL THROMBOPLASTIN TIME 30.9 SEC (26.3-35.5)
--- NOTE | 2024-10-16 11:15 | NUR ---
DRESSING: DRESSING TO RUQ DRY/INTACT WITH NO ACTIVE BLEEDING PRESENT. NO REDNESS/SWELLING NOTED TO SURROUNDING AREA.
--- NOTE | 2024-10-16 11:15 | NUR ---
U/S GD RANDOM LIVER BX TOLERATED PROCEDURE. PERFORMED BY DR John DAMICO. PUNCTURE SITE TO RUQ. X2 SPECIMEN REMOVED AND SENT TO LAB. FLOSEAL INJECTED AT END OF PROCEDURE AT 1100. DRESSING APPLIED. NO BLEEDING NOTED. PT C/O OF PAIN AND SHORTNESS OF BREATH POST PROCEDURE. PAIN MEDICATION GIVEN. O2 VIA N/C PROVIDED. POST CHEST X RAY TAKEN AND READ BY DR DAMICO. OK TO DISCHARGE TO DAY PT. PT STATES DECREASE IN PAIN. RESTING IN BED. A&O. REPORT GIVEN TO Mindy DIAS. TRANSPORTED TO DAY PT BED 8 VIA BED. NO DISTRESS NOTED.
--- NOTE | 2024-10-16 11:42 | HMCIMG ---
Exam Type: CHEST 1VW Clinical Information: POST LIVER BX Comparison: None Findings: The lungs are clear of infiltrates. The heart is enlarged. Bony and soft tissue structures of the chest wall are unremarkable. IMPRESSION: Cardiomegaly. Clear lungs.
--- NOTE | 2024-10-16 12:05 | NUR ---
REPORT: ATTEMPTING TO CALL RADIOLOGY NURSE: HEIDY BASSETT REGARDING PATIENTS PAIN. NO ANSWER.
--- NOTE | 2024-10-16 12:25 | NUR ---
report: left message with dr. elliott regarding patient complaining of severe pain. awaiting call return.
--- NOTE | 2024-10-16 12:27 | NUR ---
REPORT: HEIDY BASSETT FROM RADIOLOGY RETURNED CALL. NOTIFIED OF PATIENT COMPLAINING OF SEVERE PAIN AND LEFT MESSAGE WITH DR. DAMICO. WILL TRY TO GET A HOLD OF DR. DAMICO RIGHT NOW.
--- NOTE | 2024-10-16 13:10 | HMCIMG ---
Exam Type: CHEST 1VW Clinical Information: POST LIVER BX REPEAT. SHORTNESS OF BREATH Comparison: None Findings and impression: Interval development of density right lower lobe which could represent aspiration pneumonia. Follow-up advised. Small bilateral pleural effusions. No other interval changes.
--- NOTE | 2024-10-16 13:44 | NUR ---
assessment: returned from ct scan via bed. pt on o2 @ 5 l /nc. dressing ruq remains dry/intact with no active bleeding present.
--- NOTE | 2024-10-16 13:47 | HMCIMG ---
CT OF THE CHEST and abdomen without CONTRAST FINDINGS: There is minimal perihepatic fluid. This has developed in the interval since the ultrasound-guided biopsy earlier today and probably represents a mild amount of perihepatic hemorrhage. The thyroid gland is unremarkable. The airway is preserved. The bony and soft tissue structures of the chest wall are unremarkable. The aorta is unremarkable. No mediastinal lymphadenopathy is seen. Bilateral moderate pleural effusions are seen. There is no evidence of pulmonary embolism. Aorta and coronary arteries appear unremarkable. No evidence of nephro or ureterolithiasis is found. No hydronephrosis or ureteral dilatation is seen. The lung bases are clear. The stomach is unremarkable. There is no evidence of gastric dilatation. No blastic thickening is noted to suggest inflammation or tumor. There is no perforation. There is no gastric outlet obstruction. There is no ulceration. The spleen is unremarkable. It is not enlarged. The pancreas shows normal anatomy. It is not fatty replaced. It shows no lesions. The pancreatic duct is not dilated. The gallbladder is surgically absent. The adrenal glands are unremarkable. There is no enlargement. No lesions are noted. The visualized segments of large and small bowel appear unremarkable. The bony and vascular structures are unremarkable for the patient's age. Impression: There is minimal perihepatic fluid. This has developed in the interval since the ultrasound-guided biopsy earlier today and probably represents a mild amount of perihepatic hemorrhage.
[2024-10-16 15:13] LABS: ABG HCO3 20.5 mmol/L (21.0-28.0); ABG PCO2 32 mmHg (32-45); ABG PH 7.419 (7.350-7.450); DEVICE COMMENT LR; PO2, ARTERIAL BG 63.7 mmHg (83.0-108.0); VENT MODE, BG RA (ROOM AIR)
--- NOTE | 2024-10-19 19:30 | HMCIMG ---
US BIOPSY LIVER IR INDICATION: ABNORMAL RESULTS OF LIVER FUNCTIONS (RANDOM SITE) MANAGEMENT DEVELOPMENT SPECIALIST: Dr Eric PROCEDURE DETAILS: Informed consent was obtained after discussion of the risks, benefits and alternatives to this treatment. Sterile Prep: All elements of maximal sterile barrier technique, including hand hygiene and cutaneous antisepsis were used. A time-out was performed prior to the procedure. Anesthesia type: Conscious sedation and local Estimated blood loss: Less than 5 cc. TECHNIQUE: Imaging guidance for access: Ultrasound with permanent image storage Intraprocedural or immediate post-procedural complications: None The right upper quadrant was prepped and draped in a sterile fashion. 1% lidocaine was used for local anesthesia. Ultrasound study was performed to assess an appropriate entry site. Using ultrasound guidance, a coaxial needle was advanced into the right hepatic lobe l via a anterolateral approach and 3 18-gauge core biopsies were obtained. Posterior was administered through the coaxial needle. All the needles were removed and hemostasis was achieved with manual compression. Sterile dressing was applied. The patient tolerated the procedure well. No immediate completion. Completion ultrasound was performed. FINDINGS: There are no focal hepatic lesions.. Completion ultrasound demonstrated no immediate complication. IMPRESSION: Uneventful biopsy of the right hepatic lobe using CT guidance. Specimen sent for analysis. At the end of the procedure the patient developed shortness of breath. She was unable to be weaned off of 02 so a chest x-ray was obtained as well as CT of the abdomen and pelvis and the patient was admitted to the hospital for pain control and oxygen therapy as well as further workup to evaluate the source of the shortness of breath.
== END | disposition home or self-care (01) ==
LOC: RAH 08:31 → EDSTATUS 09:00
PROVIDERS: ATTEND Internal Medicine Gastroenterology
DX: R94.5 Abnormal results of liver function studies (principal); K75.89 Other specified inflammatory liver diseases; K74.60 Unspecified cirrhosis of liver; K21.9 Gastro-esophageal reflux disease without esophagitis; K59.04 Chronic idiopathic constipation; E78.5 Hyperlipidemia, unspecified; I10 Essential (primary) hypertension; J90 Pleural effusion, not elsewhere classified; R12 Heartburn; E66.9 Obesity, unspecified; R06.02 Shortness of breath; F41.9 Anxiety disorder, unspecified; Z86.2 Personal history of diseases of the blood and blood-forming organs and certain disorders involving the immune mechanism; Z90.49 Acquired absence of other specified parts of digestive tract; Z79.899 Other long term (current) drug therapy; Z90.710 Acquired absence of both cervix and uterus; Z68.32 Body mass index [BMI] 32.0-32.9, adult
CPT/HCPCS: 47000; 82803; 85025; 85610; 85730; 82948; 36415; 88313; 88307; 71045 ×2; 74150; 71250; 76942; J3010; J7030; J2250; A4215; A4222; A4221; A4663; A4216; A4606; A4223 ×3

== ENCOUNTER 2024-10-24 13:29 | Emergency (ER) | payer OTHER ==
[~2024-10-24] VITALS: Ht 152.4 cm; Wt 65.8 kg
[~2024-10-24 13:29] MED LIST changes: -AMLODIPINE; -BENAZEPRIL; -CA C-5 PO; -FENTanyl CITRate PF 50 MCG/1 ML 2ML VIAL ONE; -FERS325 PO; -MIDAZOLAM HCL 1 MG/ML 2ML VIAL ONE; -NILO150C PO; -SENN-316 PO
--- NOTE | 2024-10-24 13:38 | ERN ---
General Stated Complaint: ABD PAIN Time Seen by MD: 13:30 Source: patient History of Present Illness Initial Comments PATIENT IS A 69-YEAR-OLD FEMALE COMING IN TO BE EVALUATED FOR ABDOMINAL PAIN. PATIENT WAS RECENTLY EVALUATED BY DIE INSPECTOR AFTER PATIENT HAD A LIVER BIOPSY AND HAS BEEN HAVING ABDOMINAL PAIN SINCE THEN. PATIENT WAS SEEN BEFORE AND IT WAS FREE FLUID IN THE ABDOMEN SUGGESTIVE OF A POSSIBLE HEMORRHAGE. PATIENT WAS RE-EVALUATED AND SENT IN FOR FURTHER WORKUP. Allergies: Coded Allergies: No Known Allergies (Unverified Allergy, Unknown, 07/23/24) Home Meds Active Scripts Furosemide (Furosemide) 20 Mg Tablet, 1 TAB PO DAILY for 30 Days, #30 TAB 0 Refills Prov:RACHEL MANLEY 10/21/24 Metoprolol Tartrate (Lopressor) 25 Mg Tab, 25 MG PO BID, #60 TAB 3 Refills Prov:ISSA LOUIE MD 07/26/24 Apixaban (Eliquis) 5 Mg Tablet, 5 MG PO BID, #60 TAB 3 Refills Prov:ISSA LOUIE MD 07/26/24 Reported Medications Amlodipine Besylate/Benazepril (Amlodipine-Benazepril 2.5-10) 2.5 Mg-10 Mg Capsule, 1 EACH PO DAILY, CAP 10/21/24 Fluticasone/Umeclidin/Vilanter (Trelegy Ellipta 100-62.5-25) 100-62.5 Blst.w.dev, 1 PUFF IH DAILY for 30 Days, #1 EACH 0 Refills 10/19/24 Isosorbide Mononitrate (Isosorbide Mononitrate ER) 30 Mg Tab.er.24h, 30 MG PO DAILY, TAB 10/17/24 Ca/D3/Mag/Zinc/Evens/Isai/Mgbor (Caltrate 600+D3+Min Chew Tab) 600 Mg-800 Tab. chew, 1 EACH PO AD, TAB.CHEW 10/17/24 Alendronate Sodium (Alendronate Sodium) 70 Mg Tablet, 1 TAB PO QWEEK for 28 Days, #4 TAB 0 Refills in the morning, at least 30 minutes before the first food, beverage, or medication of the day 07/23/24 Mirabegron (Myrbetriq) 50 Mg Tab.er.24h, 1 TAB PO DAILY for 30 Days, #30 TAB 0 Refills 07/23/24 Valacyclovir HCl (Valacyclovir) 1,000 Mg Tablet, 1 TAB PO BID for 7 Days, #21 TAB 0 Refills 07/23/24 Atorvastatin Calcium (LIPITOR) 20 Mg Tab, 1 TAB PO HS for 30 Days, #30 TAB 0 Refills 07/23/24 Ursodiol (Ursodiol) 500 Mg Tablet, 1 TAB PO BID for 30 Days, #60 TAB 0 Refills 07/23/24 Discontinued Reported Medications Nilotinib HCl (Tasigna) 150 Mg Capsule, 1 CAP PO BID for 30 Days, #120 CAP 0 Refills 07/23/24 [Amlodip/Benazepril] No Conflict Check, 1 TAB 07/23/24 Ferrous Sulfate (Ferrous Sulfate) 325 Mg (65 Mg Iron) Ectab, 1 TAB PO DAILY for 30 Days, #30 TAB 0 Refills 07/23/24 Calcium/D3/Mag Ox/Caser/Isai/Zn (Caltrate+D3 Plus Mineral Minis) 300 Mg-20 Tablet, 1 TAB PO DAILY for 30 Days, #30 TAB 0 Refills 07/23/24 Past Medical History Past Medical History: Anemia, Anxiety, Constipation, GERD, High Cholesterol, Liver Disease Medical History Other: OBESITY, Leukemia Past Surgical History: Hysterectomy, Cholecystectomy Surgical History Other: LIVER BX TODAY ROS Dictation CONSTITUTIONAL: NO CHILLS, NO FEVER, NO WEAKNESS, NO DIAPHORESIS, NO MALAISE. HEAD/FACE: NO SIGNS OF TRAUMA. EENT: NO EYE PAIN, NO BLURRED VISION, NO TEARING, NO DOUBLE VISION, NO EAR PAIN, NO EAR DISCHARGE, NO NOSE PAIN, NO NASAL CONGESTION, NO THROAT PAIN, NO THROAT SWELLING, NO MOUTH PAIN. RESPIRATORY: NO COUGH, NO ORTHOPNEA, NO SOB, NO STRIDOR, NO WHEEZING. CARDIOVASCULAR: NO CHEST PAIN, NO EDEMA, NO PALPITATIONS, NO SYNCOPE. GASTROINTESTINAL/ABDOMINAL: ABDOMINAL PAIN, NO CONSTIPATION, NO DIARRHEA, NO NAUSEA, NO VOMITING. GENITOURINARY: NO ABNORMAL DISCHARGE, NO DYSURIA, NO FREQUENT URINATION, NO HEMATURIA. NO COMPLAINTS OF PAIN IN THE GENITALS. MUSCULOSKELETAL: NO BACK PAIN, NO GOUT, NO JOINT PAIN, NO JOINT SWELLING, NO MUSCLE PAIN, NO MUSCLE STIFFNESS, NO NECK PAIN. INTEGUMENTARY: NO CHANGE IN COLOR, NO CHANGE IN HAIR/NAILS, NO DRYNESS, NO LESION, NO LUMPS, NO RASH. NEUROLOGICAL/PSYCH: NO ANXIETY, NOT DEPRESSED, NO EMOTIONAL PROBLEM, NO HEADACHE, NO NUMBNESS, NO PRE-EXISTING DEFICIT, NO HISTORY OF SEIZURES, NO TREMORS, NO WEAKNESS. HEMATOLOGIC/LYMPHATIC: NOT ANEMIC, NO HISTORY OF BLOOD CLOTS, NO APPARENT BLEEDING, NO BRUISING, GLANDS NOT SWOLLEN. ALL SYSTEMS NEGATIVE, EXCEPT NOTED. Physical Exam Physical Exam Dictation VITAL SIGNS: REVIEWED. GENERAL APPEARANCE: ALERT, ORIENTED X3, NO ACUTE DISTRESS, OBESE. HEAD AND FACE: NON-TRAUMATIC. EYES: PERRL, PINK CONJUNCTIVAS, EYELID NO TRAUMA, ANTERIOR CHAMBER CLEAR. EARS: PINNAS INTACT AND NO SIGNS OF TRAUMA OR ERYTHEMA. EAR CANALS CLEAR AND NO DISCHARGE. TMS NO ERYTHEMA. NOSE: NO DISCHARGE, NO BLEEDING. OROPHARYNX: MOUTH NORMAL, TEETH NO CARIES, TONGUE PINK. PHARYNX CLEAR, NO ERYTHEMA. TONSILS NO EXUDATES, NO ABSCESSES NOTED. MUCOUS MEMBRANE MOIST. NECK: SUPPLE, NON-TENDER, NO THYROMEGALY, NO MASSES, NO JVD, NO BRUITS. BREAST: DEFERRED. CHEST: NO TENDERNESS, NO CREPITUS, NO PARADOXICAL MOVEMENT, NO RETRACTIONS. LUNGS: CLEAR, WELL-VENTILATED, SYMMETRIC, NO RALES, NO WHEEZING, NO RHONCHI, NO STRIDOR, GOOD BREATH SOUNDS BILATERALLY. HEART: REGULAR RATE, REGULAR RHYTHM, NO MURMUR, NO GALLOPS. VASCULAR: NO PERIPHERAL EDEMA. ABDOMEN: SOFT, POSITIVE BOWEL SOUNDS, NONDISTENDED, NO GUARDING, RUQ TENDER, NO REBOUND, NO MASSES NO HEPATOMEGALY, NO SPLENOMEGALY, NO FARMER'S SIGN, NO HERNIAS. RECTAL: DEFERRED. GENITAL: DEFERRED. NEUROLOGICAL: NORMAL SPEECH, GROSS MOTOR FUNCTION INTACT, GROSS SENSORY FUNCTION INTACT. MUSCULOSKELETAL: NECK NONTENDER, FULL RANGE OF MOTION, BACK NONTENDER, FULL RANGE OF MOTION. EXTREMITIES: NONTENDER, FULL RANGE OF MOTION. SKIN: COLOR PINK, DRY, NO TURGOR, NO RASH, NO LACERATIONS, NO ABRASIONS, NO CONTUSIONS. LYMPHATICS: DEFERRED. Results Laboratory and Microbiology Lab and Micro Result Laboratory Tests Test 10/24/24 13:40 10/24/24 16:02 White Blood Count 8.4 K/uL (4.8-10.8) Red Blood Count 3.99 MIL/uL (4.00-5.50) L Hemoglobin 13.3 g/dL (12.0-16.0) Hematocrit 42.1 % (36-48) Mean Corpuscular Volume 105.5 fL (79-99) H Mean Corpuscular Hemoglobin 33.3 pg (27.0-33.0) H Mean Corpuscular Hemoglobin Concent 31.6 g/dL (32.0-36.0) L Red Cell Distribution Width 19.5 % (11.0-15.5) H Platelet Count 159 K/uL (130-400) Mean Platelet Volume 11.1 fL (7.5-10.5) H Immature Granulocyte % (Auto) 1.0 % (0-1) Neutrophils (%) (Auto) 62.7 % (40.0-77.0) Lymphocytes (%) (Auto) 21.5 % (21.0-51.0) Monocytes (%) (Auto) 8.8 % (3.0-13.0) Eosinophils (%) (Auto) 5.5 % (0.0-8.0) Basophils (%) (Auto) 0.5 % (0.0-5.0) Neutrophils # (Auto) 5.3 K/uL (1.8-7.7) Lymphocytes # (Auto) 1.8 K/uL (1.0-4.8) Monocytes # (Auto) 0.7 K/uL (0.1-1.0) Eosinophils # (Auto) 0.46 K/uL (0.00-0.70) Basophils # (Auto) 0.04 K/uL (0.00-0.20) Absolute Immature Granulocyte (auto 0.08 K/uL (0-1) Nucleated Red Blood Cells 0.0 % (0.0-0.19) Red Blood Cell Morphology See comments Prothrombin Time 11.0 SEC (9.6-11.6) Prothromb Time International Ratio 1.04 (0.85-1.15) Activated Partial Thromboplast Time 28.2 SEC (26.3-35.5) Sodium Level 137 mmol/L (136-145) Potassium Level 3.6 mmol/L (3.5-5.1) Chloride Level 101 mmol/L (101-111) Carbon Dioxide Level 32 mmol/L (21-32) Blood Urea Nitrogen 28 mg/dL (7-18) H Creatinine 1.2 mg/dL (0.5-1.0) H Glomerular Filtration Rate Calc 48 mL/min (>90) Random Glucose 98 mg/dL (70-105) Total Calcium 9.1 mg/dL (8.5-10.1) Magnesium Level 2.20 mg/dL (1.80-2.40) Total Creatine Kinase 27 U/L (21-232) # Troponin I High Sensitivity 18.3 ng/L (4-50) B-Type Natriuretic Peptide 229 pg/mL (0-100) H Urine Color COLORLESS (YELLOW) Urine Appearance CLEAR (CLEAR) Urine pH 7.0 (5.0-8.0) Urine Specific Harmony 1.006 (1.001-1.031) Urine Protein 20 mg/dL (NEGATIVE) H Urine Glucose (UA) NEGATIVE mg/dL (NEGATIVE) Urine Ketones NEGATIVE mg/dL (NEGATIVE) Urine Occult Blood NEGATIVE (NEGATIVE) Urine Nitrate NEGATIVE (NEGATIVE) Urine Bilirubin NEGATIVE mg/dL (NEGATIVE) Urine Urobilinogen 0.2 mg/dL (0.2-1.0) Urine Leukocyte Esterase NEGATIVE Marvel/uL Urine RBC 0-1 /HPF (0-1) Urine WBC 0-1 /HPF (0-1) Urine Bacteria None /HPF (None Seen) Urine Opiates Screen NEGATIVE (NEGATIVE) Urine Barbiturates Screen NEGATIVE (NEGATIVE) Urine Phencyclidine Screen NEGATIVE (NEGATIVE) Urine Amphetamines Screen NEGATIVE (NEGATIVE) Urine Benzodiazepines Screen NEGATIVE (NEGATIVE) Urine Cocaine Screen NEGATIVE (NEGATIVE) Urine Marijuana (THC) Screen NEGATIVE (NEGATIVE) Labs Reviewed?: Yes EKG/XRAY/US/CT/MRI EKG Comment 10/24/2024 time 1:38 p.m. Ventricular rate [address] wave elevation or depression CT Scan Comment REASON: [facility] pain ORDERING PHYSICIAN: HOLGER HUA MD PROCEDURE: ABD PEL W - CT ABDOMEN/PELVIS W/CONTRAST CT ABDOMEN WITH CONTRAST. CT PELVIS WITH CONTRAST INDICATION: abdominal pain TECHNIQUE: Routine transaxial images using 5 mm slice thickness were obtained after the intravenous infusion of 75 mL of Omnipaque 350 without adverse effects. Oral contrast was not administered. Rectal contrast was not administered. Coronal and sagittal reformatted images acquired for interpretation. CT was performed with one or more of the following dose reduction techniques: Automated exposure control, adjustment of the mA and/or kV according to patient size, or use of iterative reconstruction technique. COMPARISON: None FINDINGS: ABDOMEN: Heart size is normal. Small pericardial effusion with greatest thickness measuring up to 0.9 cm. Visible lung bases are clear. The liver is normal in size and smooth in contour without lesions or biliary duct dilation. The spleen is normal in size without lesions. Extensive splenic varices. The gallbladder is absent. The pancreas appears normal without pancreatic duct dilation. The adrenal glands appear normal. Tiny simple right renal cyst. Left kidney appears normal. Cortical nephrograms are symmetric and normal in appearance bilaterally. No evidence for intra-abdominal free air or organized fluid collection. No retrocrural, intraabdominal, or retroperitoneal lymphadenopathy identified. No aortic aneurysmal dilation or dissection identified. PELVIS: No evidence for free air or organized pelvic fluid collection. No significant pelvic adenopathy detected. Proximal to mid colonic stool burden. Terminal ileum appears normal. The appendix is not well-visualized. The urinary bladder appears unremarkable. Uterus is absent. Visible osseous structures are intact. IMPRESSION: 1. No evidence for any acute intra-abdominal or pelvic process. 2. Extensive perisplenic varices. 3. Small pericardial effusion. DICTATED BY: DAX BRIGHT MD DATE: 10/24/241920 ELECTRONICALLY SIGNED BY: DAX BRIGHT MD DATE: 10/24/241947 [facility] MDM: Differential diagnosis: ABDOMINAL PAIN, RULE OUT GI BLEED, Rationale: Tests considered and ordered secondary to shared decision making include: Previous outside records reviewed: Old ER visits. Risk of complication and/or morbidity or mortality of patient management: None Medications-Per medication reconciliation Need for hospitalization: Patient does not meet criteria for hospitalization. Need for emergency major/minor surgery: No There are no social concerns with this patient. Prescription drug management Prescriptions will include symptomatic care Patient's prior external medical records from other ER visits were reviewed by me as indicated. Prior testing and results from previous visits were reviewed. Prior tests were taken into account with medical decision making and resource utilization, independent historian/historians were used to obtain complete medical history. I independently interpreted the test that were performed, results were reviewed by me and considered findings on radiology if ordered. Medical management and examination interpretation discussions were had by me with other qualified healthcare professionals as indicated for the patient's care. ED Course Orders Procedure Category Date Status Time 12 Lead Ekg Tracing- EKG 10/24/24 Resulted Technical 13:32 Cbc With Differential LAB 10/24/24 Complete 13:35 Prothrombin Time With LAB 10/24/24 Complete INR 13:35 B-Type Natriuretic LAB 10/24/24 Complete Peptide 13:35 Chest 1vw RAD 10/24/24 Resulted 13:35 Magnesium LAB 10/24/24 Complete 13:35 Urinalysis Profile LAB 10/24/24 Complete 13:35 Partial LAB 10/24/24 Complete Thromboplastin Time 13:35 Basic Metabolic Panel LAB 10/24/24 Complete 13:35 Cardiac Panel LAB 10/24/24 Complete 13:40 Drug Screen Urine LAB 10/24/24 Complete 15:03 Ct Abdomen/Pelvis CT 10/24/24 Resulted W/Contrast 15:38 Morphine 2mg Syg PHA 10/24/24 Complete (Morphine 2mg Syg) 18:00 Ondansetron 4mg Inj PHA 10/24/24 Complete (Zofran 4mg Inj) 18:00 Iohexol (Omnipaque) PHA 10/24/24 Complete 18:20 Current Medications Medications (Trade) Dose Ordered Sig/Stefani Route PRN Reason Start Time Stop Time Status Last Admin Dose Admin Iohexol (Omnipaque) 75 ml STK-MED ONCE IV 10/24/24 18:20 10/24/24 18:20 DC Morphine Sulfate (morPHINE 2MG SYG) 2 mg ONCE ONCE IVP 10/24/24 18:00 10/24/24 18:01 DC 10/24/24 18:19 Ondansetron HCl (zoFRAN 4MG INJ) 4 mg ONCE ONCE IVP 10/24/24 18:00 10/24/24 18:01 DC 10/24/24 18:25 Vital Signs Date Time Temp Pulse Resp B/P (MAP) Pulse Ox O2 Delivery O2 Flow Rate FiO2 10/24/24 18:30 97.9 63 18 149/63 98 Room Air* 0 21 10/24/24 16:45 62 18 147/64 98 Room Air* 0 21 10/24/24 15:08 97.0 58 20 154/65 98 Room Air 7:00 p.m. patient was signed out to me by a.m. physician to follow up on the CT scan results. This is a 69-year-old female who presented with abdominal pain in the left lower quadrant. Patient apparently had a liver biopsy a week ago and she went to see the GI doctors due to increased pain she was referred to the ED to make sure there was no hematoma. Temperature 96.9 pulse 58 respirations 20 blood pressure 154/65 pulse oximetry 98% on room air Chronic medical problems include AFib on apixaban, COPD, anemia, GERD, history of leukemia, hypercholesterolemia and anxiety. Labs reviewed CBC is with a normal limits hemoglobin is 13.3 BNP 7 showed a BUN and creatinine of 28 and 1.2 chest x-ray is unremarkable urinalysis was unremarkable. CT scan of the abdomen and pelvis showed stool burden but there is no pelvic fluid collection or intra-abdominal fluid collection or no abnormality. I up dated the patient and her on the CT scan findings and and recommended a good bowel regimen. We will discharge the patient on laxatives and bowel regimen DX & DISP Disposition: Discharge Departure Impression: Primary Impression: Nonspecific abdominal pain Additional Impressions: Constipation, Biliary liver cirrhosis, Leukemia Condition: Stable Scripts Sennosides/Docusate Sodium (Senna Plus 8.6-50 mg Tablet) 8.6 Mg-50 Mg Tablet 1 TAB PO DAILY for 20 Days, #20 TAB 0 Refills Prov: AGUS LEVY MD 10/24/24 Additional Instructions: Patient and the caregiver have been informed of all the diagnostic tests and the imaging conducted during the today's visit to the emergency room and has verbalized understanding of the results I have personally reviewed and interpreted all diagnostic exams performed here in the ER today as well as the vital signs documented by the nursing staff. The patient is now being discharged to home and should follow up with the primary care physician or the specialist as directed by the ER staff. Follow-up with primary care provider in 1 to 2 days. Take medications as directed here in the emergency room. Okay to continue home medications unless otherwise discussed during your visit in the emergency room today. Return to your nearest emergency room if symptoms worsen or if there is no improvement. Call 911 if you need immediate assistance. Take Tylenol or Motrin [id number] as needed and if no contraindications are present. Increase oral hydration. A wound culture or urine culture was ordered here in the emergency room department please follow-up with primary care provider and advise them to get repeat ports from our facility. If you had any Tanvir wrap/splints that were applied here, please do not remove them until you see your primary care or specialty. Referrals: LEIGH ESTEVEZ MD (PCP) HOLGER HUA MD Oct 24, 2024 13:38 AGUS LEVY MD Oct 24, 2024 20:05
[2024-10-24 14:04] LABS: BASOPHILS # (AUTO) 0.04 K/uL (0.00-0.20); BASOPHILS % (AUTO) 0.5 % (0.0-5.0); EOSINOPHILS # (AUTO) 0.46 K/uL (0.00-0.70); EOSINOPHILS % (AUTO) 5.5 % (0.0-8.0); HEMATOCRIT 42.1 % (36-48); IMMATURE GRANULOCYTE ABSOLUTE 0.08 K/uL (0-1); LYMPHOCYTES # (AUTO) 1.8 K/uL (1.0-4.8); LYMPHOCYTES % (AUTO) 21.5 % (21.0-51.0); MEAN CORPUSCULAR HEMOGLOBIN 33.3 pg (27.0-33.0); MEAN CORPUSCULAR HGB CONC 31.6 g/dL (32.0-36.0); MEAN CORPUSCULAR VOLUME 105.5 fL (79-99); MONOCYTES # (AUTO) 0.7 K/uL (0.1-1.0); MONOCYTES % (AUTO) 8.8 % (3.0-13.0); NEUTROPHILS # (AUTO) 5.3 K/uL (1.8-7.7); NEUTROPHILS % (AUTO) 62.7 % (40.0-77.0); PLATELET COUNT (AUTO) 159 K/uL (130-400); RED BLOOD CELL COUNT(AUTO) 3.99 MIL/uL (4.00-5.50); RED CELL DISTRIBUTION WIDTH 19.5 % (11.0-15.5); WHITE BLOOD COUNT (AUTO) 8.4 K/uL (4.8-10.8)
[2024-10-24 14:15] LABS: INR 1.04 (0.85-1.15)
[2024-10-24 14:16] LABS: PARTIAL THROMBOPLASTIN TIME 28.2 SEC (26.3-35.5)
[2024-10-24 14:28] LABS: CREATININE 1.2 mg/dL (0.5-1.0); POTASSIUM 3.6 mmol/L (3.5-5.1)
[2024-10-24 14:36] LABS: MAGNESIUM 2.2 mg/dL (1.80-2.40)
[2024-10-24 14:38] LABS: B-TYPE NATRIURETIC PEPTIDE 229 pg/mL (0-100)
--- NOTE | 2024-10-24 14:38 | EKG ---
[facility] Test Date: 2024-10-24 Test Time: 13:38:01 Pat Name: CARMEN HOLCOMB Department: ED Room: Gender: F Inbound Customer Service Agent: [phone] : [phone] Requested By: HOLGER HUA Order Number: [id number] Reading MD: King Marrero Measurements Intervals [place] Rate: 60 P: 39 IN: 162 QRS: -13 QRSD: 88 T: 28 QT: 435 QTc: 435 Interpretive Statements Sinus rhythm Lateral infarct, age indeterminate Compared to ECG 10/16/2024 14:47:11 Myocardial infarct finding now present Early repolarization no longer present Electronically Signed On 10-24-2024 16:02:36 CDT by King Marrero Please click the below link to view image of tracing.
--- NOTE | 2024-10-24 15:15 | HMCIMG ---
PORTABLE CHEST RADIOGRAPH INDICATION: CP COMPARISON: 10/19/2024 FINDINGS: Heart size is normal. The pulmonary vascularity and hollis appear normal. No abnormal pulmonary parenchymal opacity or consolidation identified. No significant pleural effusion noted. No pneumothorax detected. IMPRESSION: No radiographic evidence for any acute cardiopulmonary process.
[2024-10-24 16:16] LABS: APPEARANCE,URINE CLEAR (CLEAR); BILIRUBIN,URINE NEGATIVE (NEGATIVE); COLOR,URINE COLORLESS (YELLOW); GLUCOSE, URINE (UA) NEGATIVE (NEGATIVE); KETONES,URINE NEGATIVE (NEGATIVE); LEUKOCYTE ESTERASE ,URINE NEGATIVE Leu/uL (NEGATIVE); NITRATE,URINE NEGATIVE (NEGATIVE); OCCULT BLOOD,URINE NEGATIVE (NEGATIVE); PROTEIN,URINE 20 mg/dL (NEGATIVE); UROBILINOGEN,URINE 0.2 mg/dL (0.2-1.0)
[2024-10-24 16:18] LABS: ADD UA MICROSCOPIC YES
[2024-10-24 16:19] LABS: RBC,URINE 0-1 /HPF (0-1); WBC,URINE 0-1 /HPF (0-1)
[2024-10-24 16:22] LABS: AMPHET/METH SCREEN,URINE NEGATIVE (NEGATIVE); BARBITURATE SCREEN, URINE NEGATIVE (NEGATIVE); BENZODIAZEPINES SCREEN,URINE NEGATIVE (NEGATIVE); CANNABINOID SCREEN,URINE NEGATIVE (NEGATIVE); COCAINE SCREEN,URINE NEGATIVE (NEGATIVE); OPIATE SCREEN,URINE NEGATIVE (NEGATIVE); PHENCYCLIDINE SCREEN,URINE NEGATIVE (NEGATIVE)
[2024-10-24] MEDS: morPHINE 2 MG SYG IVP ONE (18:19)
[2024-10-24] MEDS ORDERED: IOHEXOL-350 75 ML VIAL IV ONE (18:20)
[2024-10-24] MEDS: ondanSETRON 4MG INJ IVP ONE (18:25)
--- NOTE | 2024-10-24 19:48 | HMCIMG ---
CT ABDOMEN WITH CONTRAST. CT PELVIS WITH CONTRAST INDICATION: abdominal pain TECHNIQUE: Routine transaxial images using 5 mm slice thickness were obtained after the intravenous infusion of 75 mL of Omnipaque 350 without adverse effects. Oral contrast was not administered. Rectal contrast was not administered. Coronal and sagittal reformatted images acquired for interpretation. CT was performed with one or more of the following dose reduction techniques: Automated exposure control, adjustment of the mA and/or kV according to patient size, or use of iterative reconstruction technique. COMPARISON: None FINDINGS: ABDOMEN: Heart size is normal. Small pericardial effusion with greatest thickness measuring up to 0.9 cm. Visible lung bases are clear. The liver is normal in size and smooth in contour without lesions or biliary duct dilation. The spleen is normal in size without lesions. Extensive splenic varices. The gallbladder is absent. The pancreas appears normal without pancreatic duct dilation. The adrenal glands appear normal. Tiny simple right renal cyst. Left kidney appears normal. Cortical nephrograms are symmetric and normal in appearance bilaterally. No evidence for intra-abdominal free air or organized fluid collection. No retrocrural, intraabdominal, or retroperitoneal lymphadenopathy identified. No aortic aneurysmal dilation or dissection identified. PELVIS: No evidence for free air or organized pelvic fluid collection. No significant pelvic adenopathy detected. Proximal to mid colonic stool burden. Terminal ileum appears normal. The appendix is not well-visualized. The urinary bladder appears unremarkable. Uterus is absent. Visible osseous structures are intact. IMPRESSION: 1. No evidence for any acute intra-abdominal or pelvic process. 2. Extensive perisplenic varices. 3. Small pericardial effusion.
[2024-10-24] MEDS ORDERED: SENN-316 PO (20:01)
[2024-10-24 20:20] VITALS: BP 142/64; PULSE 72; RESP 16; TEMP 98; O2SAT 99
== END 2024-10-24 20:21 | disposition home or self-care (01) ==
LOC: EDH 13:29
DX: K59.00 Constipation, unspecified (principal); K74.5 Biliary cirrhosis, unspecified; C95.90 Leukemia, unspecified not having achieved remission; E66.9 Obesity, unspecified; E78.00 Pure hypercholesterolemia, unspecified; R10.9 Unspecified abdominal pain; Z79.01 Long term (current) use of anticoagulants; Z79.624 Long term (current) use of inhibitors of nucleotide synthesis; Z79.899 Other long term (current) drug therapy; Z90.49 Acquired absence of other specified parts of digestive tract; Z90.710 Acquired absence of both cervix and uterus
CPT/HCPCS: 99285; 74177; 96374; 71045; 96375; 82550; 83735; 84484; 80048; 83880; 80305; 85025; 85610; 85730; 36415; 93005; 81001; J2270; J2405; Q9967